=== PATIENT | male | born 1950 | race African-American/Black ===

== ENCOUNTER → 2016-12-13 | Outpatient (CLI) | payer MEDICARE ==
[2016-12-13 09:24] LABS: ABSOLUTE BASOPHILS # (AUTO) 0.1 10^3/uL (0.0-0.2); ABSOLUTE EOSINOPHILS # (AUTO) 0.1 10^3/uL (0.0-0.6); ABSOLUTE LYMPHOCYTES (AUTO) 2.3 10^3/uL (0.5-4.7); ABSOLUTE MONOCYTES (AUTO) 0.6 10^3/uL (0.1-1.4); ABSOLUTE NEUT (AUTO) 2.9 10^3/uL (1.7-8.2); BASOPHILS % (AUTO) 1.1 % (0-2); HEMATOCRIT 37.1 % (37.9-51.0); HGB HCT DIFFERENCE -1.1; LYMPHOCYTES % (AUTO) 38.4 % (13-45); MEAN CORPUSCULAR HEMOGLOBIN 28.5 pg (27.0-33.4); MEAN CORPUSCULAR HGB CONC 32.4 g/dL (32.0-36.0); MEAN CORPUSCULAR VOLUME 88 fl (80-97); MONOCYTES % (AUTO) 10.5 % (3-13); RED BLOOD COUNT 4.21 10^6/uL (4.35-5.55); RED CELL DISTRIBUTION WIDTH 15.8 % (11.5-14.0)
[2016-12-13 09:48] LABS: ALANINE AMINOTRANSFERASE 50 U/L (21-72); ALKALINE PHOSPHATASE 53 U/L (38-126); ANION GAP 11 (5-19); ASPARTATE AMINO TRANSFERASE 33 U/L (17-59); BILIRUBIN,DIRECT 0.4 mg/dL (0.0-0.4); BILIRUBIN,TOTAL 0.5 mg/dL (0.2-1.3); BLOOD UREA NITROGEN 19 mg/dL (7-20); CALCIUM 9.8 mg/dL (8.4-10.2); CARBON DIOXIDE 25 mmol/L (22-30); CHLORIDE 109 mmol/L (98-107); CREATININE RESULT 1.69 mg/dL (0.52-1.25); GLUCOSE 105 mg/dL (75-110); POTASSIUM 4.5 mmol/L (3.6-5.0); SODIUM 144.5 mmol/L (137-145); TOTAL PROTEIN 7.5 g/dL (6.3-8.2)
[2016-12-14 11:39] LABS: CREATININE URINE 100.3 mg/dL (Not Estab.); MICROALBUMIN URINE 11.3 ug/mL (Not Estab.)
== END ==
LOC: LAB 09:03
PROVIDERS: ATTEND Family Medicine Geriatric Medicine
DX: I10 Essential (primary) hypertension (principal); E78.5 Hyperlipidemia, unspecified; E11.9 Type 2 diabetes mellitus without complications; Z79.899 Other long term (current) drug therapy
CPT/HCPCS: 36415; 80053; 82043; 82570; 84443; 85025

== ENCOUNTER → 2016-12-20 | Outpatient (CLI) | payer MEDICARE ==
--- NOTE | 2016-12-20 11:07 | RADIOLOGY REPORT (SQ) ---
EXAM DESCRIPTION: CHEST PA/LAT COMPLETED DATE/TIME: 12/20/2016 10:58 am REASON FOR STUDY: ACUTE BRONCHITIS, WHEEZING COMPARISON: 05/16/2016, 09/04/2012 EXAM PARAMETERS: NUMBER OF VIEWS: two views TECHNIQUE: Digital Frontal and Lateral radiographic views of the chest acquired. RADIATION DOSE: NA LIMITATIONS: none FINDINGS: LUNGS AND PLEURA: No opacities, masses or pneumothorax. No pleural effusion. MEDIASTINUM AND HILAR STRUCTURES: No masses or contour abnormalities. HEART AND VASCULAR STRUCTURES: Heart normal size. No evidence for failure. BONES: Diffuse thoracic spondylotic change HARDWARE: None in the chest. OTHER: No other significant finding. IMPRESSION: NO SIGNIFICANT RADIOGRAPHIC FINDING IN THE CHEST. TECHNICAL DOCUMENTATION: JOB ID: [id number] [employer]- All Rights Reserved
== END ==
LOC: RAD 10:38
PROVIDERS: ATTEND Family Medicine Geriatric Medicine
DX: J20.9 Acute bronchitis, unspecified (principal); R06.2 Wheezing
CPT/HCPCS: 71020

== ENCOUNTER → 2017-02-19 | Outpatient (CLI) | payer MEDICARE ==
[2017-02-19 12:21] LABS: CHOLESTEROL 166.99 mg/dL (0-200); Direct HDL 40 mg/dL (>40); TRIGLYCERIDES 67 mg/dL (<150)
[2017-02-19 12:32] LABS: DIRECT LDL 105 mg/dL (<100)
== END ==
LOC: LAB 11:36
PROVIDERS: ATTEND Family Medicine Geriatric Medicine
DX: D64.9 Anemia, unspecified (principal); J20.9 Acute bronchitis, unspecified; E78.5 Hyperlipidemia, unspecified; E11.9 Type 2 diabetes mellitus without complications; R94.6 Abnormal results of thyroid function studies; Z79.899 Other long term (current) drug therapy
CPT/HCPCS: 36415; 80061; 82272; 82306; 82652; 82728; 83540; 83550; 84443; 84466

== ENCOUNTER → 2017-07-13 | Outpatient (CLI) | payer MEDICARE ==
[2017-07-13 10:55] LABS: HEMATOCRIT 35.1 % (37.9-51.0); HEMOGLOBIN 11.7 g/dL (13.5-17.0); MEAN CORPUSCULAR HEMOGLOBIN 29.3 pg (27.0-33.4); MEAN CORPUSCULAR HGB CONC 33.4 g/dL (32.0-36.0); MEAN CORPUSCULAR VOLUME 88 fl (80-97); PLATELET COUNT 389 10^3/uL (150-450); RED BLOOD COUNT 3.99 10^6/uL (4.35-5.55); RED CELL DISTRIBUTION WIDTH 16.1 % (11.5-14.0); WHITE BLOOD COUNT 5.7 10^3/uL (4.0-10.5)
[2017-07-13 10:56] LABS: APPEARANCE,URINE CLEAR; BILIRUBIN,URINE NEGATIVE (NEGATIVE); COLOR,URINE YELLOW; GLUCOSE, URINE NEGATIVE (NEGATIVE); KETONES,URINE NEGATIVE (NEGATIVE); LEUKOCYTE ESTERASE,URINE NEGATIVE (NEGATIVE); NITRITE,URINE NEGATIVE (NEGATIVE); PROTEIN,URINE NEGATIVE (NEGATIVE); URINE SPECIFIC GRAVITY 1.009; UROBILINOGEN,URINE NEGATIVE mg/dL (<2.0)
[2017-07-13 11:04] LABS: ANION GAP 12 (5-19); BLOOD UREA NITROGEN 31 mg/dL (7-20); CALCIUM 10.5 mg/dL (8.4-10.2); CARBON DIOXIDE 26 mmol/L (22-30); CHLORIDE 105 mmol/L (98-107); GLUCOSE 106 mg/dL (75-110); POTASSIUM 4.5 mmol/L (3.6-5.0); SODIUM 143.2 mmol/L (137-145)
[2017-07-14 11:39] LABS: CREATININE URINE 63.8 mg/dL (Not Estab.)
[2017-07-15 10:47] LABS: MICROALBUMIN URINE <3.0 ug/mL (Not Estab.)
== END ==
LOC: OD 09:49
PROVIDERS: ATTEND Internal Medicine Nephrology
DX: I12.9 Hypertensive chronic kidney disease with stage 1 through stage 4 chronic kidney disease, or unspecified chronic kidney disease (principal); N18.3 Chronic kidney disease, stage 3 (moderate); E11.9 Type 2 diabetes mellitus without complications
CPT/HCPCS: 36415; 80048; 81001; 82043; 82570; 85027

== ENCOUNTER → 2017-08-13 | Outpatient (CLI) | payer MEDICARE ==
[2017-08-13 10:49] LABS: ALANINE AMINOTRANSFERASE 49 U/L (21-72); ASPARTATE AMINO TRANSFERASE 38 U/L (17-59); CHOLESTEROL 134.57 mg/dL (0-200); TRIGLYCERIDES 67 mg/dL (<150)
[2017-08-13 11:00] LABS: DIRECT LDL 79 mg/dL (<100)
[2017-08-14 10:38] LABS: CREATININE URINE 120.3 mg/dL (Not Estab.); MICROALBUMIN URINE 14.9 ug/mL (Not Estab.)
== END ==
LOC: LAB 09:58
PROVIDERS: ATTEND Family Medicine Geriatric Medicine
DX: E78.5 Hyperlipidemia, unspecified (principal); I12.9 Hypertensive chronic kidney disease with stage 1 through stage 4 chronic kidney disease, or unspecified chronic kidney disease; N18.3 Chronic kidney disease, stage 3 (moderate); E11.9 Type 2 diabetes mellitus without complications
CPT/HCPCS: 36415; 80061; 82043; 82570; 83036; 84450; 84460

== ENCOUNTER → 2017-11-06 | Outpatient (CLI) | payer MEDICARE ==
[2017-11-06 11:32] LABS: HEMATOCRIT 36.4 % (37.9-51.0); HEMOGLOBIN 12.2 g/dL (13.5-17.0); MEAN CORPUSCULAR HEMOGLOBIN 28.8 pg (27.0-33.4); MEAN CORPUSCULAR HGB CONC 33.4 g/dL (32.0-36.0); MEAN CORPUSCULAR VOLUME 86 fl (80-97); PLATELET COUNT 337 10^3/uL (150-450); RED BLOOD COUNT 4.23 10^6/uL (4.35-5.55); WHITE BLOOD COUNT 5.9 10^3/uL (4.0-10.5)
[2017-11-06 12:02] LABS: ANION GAP 14 (5-19); BLOOD UREA NITROGEN 24 mg/dL (7-20); CALCIUM 10.1 mg/dL (8.4-10.2); CARBON DIOXIDE 25 mmol/L (22-30); CHLORIDE 108 mmol/L (98-107); GLUCOSE 133 mg/dL (75-110); POTASSIUM 4.8 mmol/L (3.6-5.0); SODIUM 147.1 mmol/L (137-145)
== END ==
LOC: OD 10:44
PROVIDERS: ATTEND Internal Medicine Nephrology
DX: E11.22 Type 2 diabetes mellitus with diabetic chronic kidney disease (principal); I12.9 Hypertensive chronic kidney disease with stage 1 through stage 4 chronic kidney disease, or unspecified chronic kidney disease; N18.3 Chronic kidney disease, stage 3 (moderate); M10.00 Idiopathic gout, unspecified site
CPT/HCPCS: 36415; 80048; 85027

== ENCOUNTER → 2017-11-15 | Outpatient (CLI) | payer MEDICARE ==
[2017-11-15 10:29] LABS: ANION GAP 12 (5-19); BLOOD UREA NITROGEN 23 mg/dL (7-20); CALCIUM 9.8 mg/dL (8.4-10.2); CARBON DIOXIDE 24 mmol/L (22-30); CHLORIDE 112 mmol/L (98-107); GLUCOSE 101 mg/dL (75-110); POTASSIUM 4.4 mmol/L (3.6-5.0); SODIUM 148.4 mmol/L (137-145); URIC ACID 6.3 mg/dL (3.5-8.5)
== END ==
LOC: OD 09:04
PROVIDERS: ATTEND Family Medicine Geriatric Medicine
DX: I10 Essential (primary) hypertension (principal); M10.9 Gout, unspecified; Z79.899 Other long term (current) drug therapy
CPT/HCPCS: 36415; 80048; 84550

== ENCOUNTER 2017-11-17 07:15 | Inpatient (IN) | payer MEDICARE ==
[2017-11-17] MEDS ORDERED: ASPIRIN 81 MG TABLET, CHEWABLE PO ONE (07:37)
--- NOTE | 2017-11-17 07:37 | ER Document Report ---
ED General - General Chief Complaint: Chest Pressure Stated Complaint: SHORTNESS OF BREATH Time Seen by Provider: 11/17/17 07:37 Mode of Arrival: Ambulatory Information source: Patient Notes: 67-year-old male hx MA, 2 previous pneumothorax on the right side presents with complaints of shortness of breath chest pain of approximately 6 hour duration. Patient notes he cannot get a deep breath and. Denies any fevers or chills denies any complaints prior to this occurring all of a sudden TRAVEL OUTSIDE OF THE [place] IN LAST 30 DAYS: No - HPI Onset: Just prior to arrival Onset/Duration: Sudden Quality of pain: Sharp Severity: Moderate Pain Level: 3 Associated symptoms: Chest pain, Shortness of breath Exacerbated by: Deep breathing Relieved by: Denies Similar symptoms previously: Yes Recently seen / treated by doctor: No Past Medical History - Social History Smoking Status: Current Every Day Smoker Cigarette use (# per day): Yes Chew tobacco use (# tins/day): No Smoking Education Provided: No Family History: Reviewed & Not Pertinent - Past Medical History Cardiac Medical History: Reports: Hx Heart Attack - 2005, Hx Hypercholesterolemia, Hx Hypertension Pulmonary Medical History: Denies: Hx Asthma Neurological Medical History: Denies: Hx Cerebrovascular Accident, Hx Seizures Endocrine Medical History: Reports: Hx Diabetes Mellitus Type 2 GI Medical History: Denies: Hx Hepatitis, Hx Hiatal Hernia, Hx Ulcer Musculoskeltal Medical History: Reports Hx Gout Infectious Medical History: Denies: Hx Hepatitis Past Surgical History: Reports: Hx Orthopedic Surgery - back. Denies: Hx Open Heart Surgery, Hx Pacemaker - Immunizations Hx Diphtheria, Pertussis, Tetanus Vaccination: No Review of Systems - Review of Systems Notes: REVIEW OF SYSTEMS: CONSTITUTIONAL : Denies fever, chills, or sweats. Denies recent illness. EENT: Denies eye, ear, throat, or mouth pain or symptoms. Denies nasal or sinus congestion or discharge. Denies throat, tongue, or mouth swelling or difficulty swallowing. CARDIOVASCULAR: Admits to chest pain RESPIRATORY: Admits to shortness of breath to breathing GASTROINTESTINAL: Denies abdominal pain or distention. Denies nausea, vomiting , or diarrhea. Denies blood in vomitus, stools, or per rectum. Denies black, tarry stools. Denies constipation. GENITOURINARY: Denies difficulty urinating, painful urination, burning, frequency, blood in urine, or discharge. MUSCULOSKELETAL: Denies back or neck pain or stiffness. Denies joint pain or swelling. SKIN: Denies rash, lesions or sores. HEMATOLOGIC : Denies easy bruising or bleeding. LYMPHATIC: Denies swollen, enlarged glands. NEUROLOGICAL: Denies confusion or altered mental status. Denies passing out or loss of consciousness. Denies dizziness or lightheadedness. Denies headache. Denies weakness or paralysis or loss of use of either side. Denies problems with gait or speech. Denies sensory loss, numbness, or tingling. Denies seizures. PSYCHIATRIC: Denies anxiety or stress. Denies depression, suicidal ideation, or homicidal ideation. ALL OTHER SYSTEMS REVIEWED AND NEGATIVE. Dictation was performed using [employer] voice recognition software PHYSICAL EXAMINATION: GENERAL: Well-appearing, well-nourished and in no acute distress. HEAD: Atraumatic, normocephalic. EYES: Pupils equal round and reactive to light, extraocular movements intact, sclera anicteric, conjunctiva are normal. ENT: Nares patent, oropharynx clear without exudates. Moist mucous membranes. NECK: Normal range of motion, supple without lymphadenopathy LUNGS: No breath sounds noted on the left HEART: Regular rate and rhythm without murmurs ABDOMEN: Soft, nontender, nondistended abdomen. No guarding, no rebound. No masses appreciated. Musculoskeletal: Normal range of motion, no pitting or edema. No cyanosis. NEUROLOGICAL: Cranial nerves grossly intact. Normal speech, normal gait. Normal sensory, motor exams PSYCH: Normal mood, normal affect. SKIN: Warm, Dry, normal turgor, no rashes or lesions noted. Physical Exam - Vital signs Vitals: Temp Pulse Resp BP Pulse Ox 98.0 F 63 18 175/79 H 95 11/17/17 07:31 11/17/17 07:31 11/17/17 07:31 11/17/17 07:31 11/17/17 07:31 Course - Re-evaluation Re-evalutation: 11/17/17 08:03 Patient has no signs of a tension pneumothorax but on examination there is obvious concerns for a spontaneous pneumothorax, blood pressure stable he satting anywhere between 94-95%, therefore I did order a chest x-ray portable which is consistent with a pneumothorax I spoke with on-call surgeon who will place chest tube 11/17/17 08:38 Chest tube was placed with no difficulty - Vital Signs Vital signs: Temp Pulse Resp BP Pulse Ox 98.0 F 63 18 175/79 H 97 11/17/17 07:31 11/17/17 07:31 11/17/17 07:31 11/17/17 07:31 11/17/17 07:40 - Laboratory Result Diagrams: 11/17/17 07:45 11/17/17 07:45 Laboratory results interpreted by me: 11/17/17 11/17/17 07:45 07:45 RBC 4.33 L Hgb 12.8 L Hct 37.8 L RDW 16.2 H Sodium 149.1 H Chloride 110 H BUN 23 H Creatinine 1.64 H Est GFR ( Amer) 51 L Est GFR (Non-Af Amer) 42 L Glucose 117 H Creatine Kinase 226 H - Diagnostic Test Radiology reviewed: Image reviewed - Chest x-ray one view AP notes acute left- sided pneumothorax, Reports reviewed Critical Care Note - Critical Care Note Total time excluding time spent on procedures (mins): 40 Comments: 40 minutes of critical care time spent in direct contact evaluating and reevaluating the patient, treating symptoms, reviewing labs and studies and speaking with family and consultants excluding any procedures Discharge - Discharge Clinical Impression: Pneumothorax Qualifiers: Pneumothorax type: spontaneous, primary Qualified Code(s): J93.11 - Primary spontaneous pneumothorax Condition: Stable Disposition: ADMITTED INPATIENT Admitting Provider: Surgicalist Unit Admitted: Surgical Floor Referrals: MANDEEP OJEDA MD [Primary Care Provider] - Follow up as needed
[2017-11-17 07:56] LABS: ABSOLUTE BASOPHILS # (AUTO) 0.1 10^3/uL (0.0-0.2); ABSOLUTE EOSINOPHILS # (AUTO) 0.1 10^3/uL (0.0-0.6); ABSOLUTE LYMPHOCYTES (AUTO) 2.2 10^3/uL (0.5-4.7); ABSOLUTE MONOCYTES (AUTO) 0.6 10^3/uL (0.1-1.4); ABSOLUTE NEUT (AUTO) 3.4 10^3/uL (1.7-8.2); BASOPHILS % (AUTO) 1.2 % (0-2); EOSINOPHILS % (AUTO) 1.4 % (0-6); HEMATOCRIT 37.8 % (37.9-51.0); HEMOGLOBIN 12.8 g/dL (13.5-17.0); LYMPHOCYTES % (AUTO) 33.9 % (13-45); MEAN CORPUSCULAR HEMOGLOBIN 29.6 pg (27.0-33.4); MEAN CORPUSCULAR HGB CONC 33.9 g/dL (32.0-36.0); MEAN CORPUSCULAR VOLUME 87 fl (80-97); PLATELET COUNT 364 10^3/uL (150-450); RED BLOOD COUNT 4.33 10^6/uL (4.35-5.55); RED CELL DISTRIBUTION WIDTH 16.2 % (11.5-14.0); SEGMENTED NEUTROPHILS % (AUTO) 53.5 % (42-78); TOTAL CELLS COUNTED % (AUTO) 100 %; WHITE BLOOD COUNT 6.4 10^3/uL (4.0-10.5)
[2017-11-17 08:04] LABS: PROTHROMBIN TIME 13.7 SEC (11.4-15.4)
[2017-11-17 08:17] LABS: ALANINE AMINOTRANSFERASE 35 U/L (21-72); ALBUMIN 4.1 g/dL (3.5-5.0); ALKALINE PHOSPHATASE 55 U/L (38-126); ANION GAP 15 (5-19); ASPARTATE AMINO TRANSFERASE 32 U/L (17-59); BILIRUBIN,DIRECT 0.3 mg/dL (0.0-0.4); BILIRUBIN,TOTAL 0.3 mg/dL (0.2-1.3); BLOOD UREA NITROGEN 23 mg/dL (7-20); CALCIUM 9.9 mg/dL (8.4-10.2); CARBON DIOXIDE 24 mmol/L (22-30); CHLORIDE 110 mmol/L (98-107); CREATINE KINASE 226 U/L (55-170); GLUCOSE 117 mg/dL (75-110); POTASSIUM 4.5 mmol/L (3.6-5.0); SODIUM 149.1 mmol/L (137-145); TOTAL PROTEIN 7.4 g/dL (6.3-8.2)
[2017-11-17] MEDS ORDERED: LIDOCAINE 1% INJ-PF (10 MG/ML) 30 ML SDV ONE (08:19)
[2017-11-17] MEDS ORDERED: LIDOCAINE 1% INJ-PF (10 MG/ML) 30 ML SDV INFIL ONE (08:19)
--- NOTE | 2017-11-17 08:21 | RADIOLOGY REPORT (SQ) ---
EXAM DESCRIPTION: CHEST SINGLE VIEW COMPLETED DATE/TIME: 11/17/2017 8:01 am REASON FOR STUDY: chest pressure, NO ;T LUNG SOUNDS, DO PCXR PER DR Swanson COMPARISON: 12/20/2016. FINDINGS: Single view AP portable upright chest. Large left pneumothorax without tension suggested. Right lung clear. Normal cardiomediastinal silhouette. IMPRESSION: Left pneumothorax. TECHNICAL DOCUMENTATION: JOB ID: [id number] Reading location - IP/workstation name: [email or web address]
[2017-11-17] MEDS ORDERED: MIDAZOLAM 2 MG/2 ML INJ ONE (08:22)
[2017-11-17] MEDS ORDERED: FENTANYL CITRATE INJ/PF 100 MCG/2 ML AMPUL ONE (08:23)
[2017-11-17 08:28] LABS: CREATINE KINASE MB 1.52 ng/mL (<4.55)
[2017-11-17 08:32] LABS: TROPONIN I < 0.012 ng/mL
[2017-11-17] MEDS ORDERED: ONDANSETRON HCL INJ/PF 4 MG/2 ML SDV IV PRN (09:03)
[2017-11-17] MEDS ORDERED: MORPHINE SULFATE 10 MG/ML INJ IV PRN (09:09)
[2017-11-17] MEDS ORDERED: HYDROCODONE/ACETAMINOPHEN 10-325 MG TABLET PO PRN (09:09)
--- NOTE | 2017-11-17 09:09 | RADIOLOGY REPORT (SQ) ---
EXAM DESCRIPTION: CHEST SINGLE VIEW COMPLETED DATE/TIME: 11/17/2017 8:59 am REASON FOR STUDY: post chest tube placement COMPARISON: Radiograph from earlier this morning. FINDINGS: Portable AP semi upright single-view chest. Left chest tube in appropriate position with tip to the apex. Re- expanding left lung with persisten t small pneumothorax. No mediastinal shift. IMPRESSION: Re- expanding lung after left chest tube placement. TECHNICAL DOCUMENTATION: JOB ID: [id number] Reading location - IP/workstation name: [email or web address]
[2017-11-17] MEDS ORDERED: NORMAL SALINE 1000 ML 1,000 ML IV PRN (09:10)
--- NOTE | 2017-11-17 09:21 | Operative Report ---
Nonrecallable Operative Report DATE OF SURGERY: 11/17/17 PREOPERATIVE DIAGNOSIS: Spontaneous pneumothorax on the left POSTOPERATIVE DIAGNOSIS: Spontaneous pneumothorax of the left OPERATION: Left-sided tube thoracostomy. SURGEON: EMMY ARECHIGA ANESTHESIA: Moderate Sedation TISSUE REMOVED OR ALTERED: None COMPLICATIONS: None apparent ESTIMATED BLOOD LOSS: Minimal PROCEDURE: Drains/implants: 28 Uzbek tube thoracostomy of the left chest. Procedure in detail: After informed consent was obtained the patient was laid in the supine position in the emergency department. The area of the left chest was prepped and draped in a normal, sterile fashion. Sedation was achieved using 4 mg of Versed and 100 mcg of fentanyl. 1% lidocaine was injected into the subcutaneous tissue in the left chest. This was done at the mid axillary line, at the level of the nipple. An incision was created with a 15 blade scalpel. Tunneling was performed through the subcutaneous tissue using blunt dissection. The chest wall was entered using a Kira clamp, bluntly. A large castaneda of air was identified. A finger sweep was performed noting no loculations. A 28 Uzbek chest tube was inserted into the chest and directed superiorly. The chest tube was sutured to the chest wall using 0 silk suture 2. A dressing was then fashioned, and the procedure was concluded. All sponge , instrument, and needle counts were correct 2. Condition: Stable.
--- NOTE | 2017-11-17 09:34 | PDOC H&P ---
History of Present Illness Admission Date/PCP: 11/17/17 08:31 MANDEEP OJEDA MD Patient complains of: Left-sided chest pain and shortness of breath History of Present Illness: SALONI MANJARREZ is a 67 year old male with a one-day history of left-sided chest pain and shortness of breath. The patient is a prior smoker and has had one previous episode of spontaneous right-sided pneumothorax. Patient began having sharp, stabbing chest pain on the left and presented to the emergency department for evaluation. He reports that his pain is increasing. The patient underwent workup, revealing a spontaneous left-sided pneumothorax. Patient denies any dizziness, orthostasis, nausea, vomiting, blurry vision, or palpitations. Nothing makes his pain better. Deep inspiration makes it worse. Past Medical History Cardiac Medical History: Reports: Myocardial Infarction - 2005, Hyperlipidema, Hypertension Pulmonary Medical History: Reports: Other - Previous right sided spontaneous pneumothorax approximately 5 years ago Denies: Asthma Neurological Medical History: Denies: Seizures Endocrine Medical History: Reports: Diabetes Mellitus Type 2 GI Medical History: Denies: Hepatitis, Hiatal Hernia Musculoskeltal Medical History: Reports: Gout Hematology: Denies: Anemia, Sickle Cell Disease Past Surgical History Past Surgical History: Reports: Orthopedic Surgery - back Denies: Pacemaker Social History Smoking Status: Former Smoker Frequency of Alcohol Use: Rare Family History Family History: Reviewed & Not Pertinent Parental Family History Reviewed: Yes Children Family History Reviewed: Yes Sibling(s) Family History Reviewed.: Yes Medication/Allergy Home Medications: Amlodipine Besylate 10 mg PO DAILY 07/24/12 Aspirin [Aspirin 81 mg Chewable Tablet] 81 mg PO DAILY 07/24/12 Carvedilol [Coreg 25 mg Tablet] 25 mg PO Q12 07/24/12 Clopidogrel Bisulfate [Clopidogrel] 75 mg PO DAILY 07/24/12 Multivitamin [Multiple Vitamins] 1 each PO DAILY 07/24/12 [place]-3/Dha/Epa/Fish Oil [Fish Oil 1,000 mg Softgel] 1 each PO DAILY 07/24/12 Pravastatin Sodium [Pravachol] 80 mg PO DAILY 07/24/12 Losartan/Hydrochlorothiazide [Hyzaar 100-25 Tablet] 1 each PO DAILY 11/10/13 Metformin HCl [Glucophage 500 mg Tablet] 850 mg PO DAILY 11/10/13 Besifloxacin HCl [Besivance 0.6% Oph Susp 5 ml] 1 drop OP ASDIR PRN 11/06/14 Difluprednate [Durezol] 1 drop OP ASDIR PRN 11/06/14 Ketorolac Tromethamine [Acular] 1 drop OP ASDIR PRN 11/06/14 Allergies/Adverse Reactions: No Known Allergies Allergy (Unverified 11/17/17 09:25) Review of Systems Constitutional: ABSENT: chills, fatigue, fever(s), headache(s) Eyes: ABSENT: visual disturbances Ears: ABSENT: hearing changes Nose, Mouth, and Throat: ABSENT: sore throat Cardiovascular: PRESENT: chest pain. ABSENT: edema, palpitations Respiratory: PRESENT: cough. ABSENT: dyspnea, hemoptysis Gastrointestinal: ABSENT: abdominal pain, bloating, constipation, diarrhea, dysphagia, heartburn Genitourinary: ABSENT: dysuria Musculoskeletal: ABSENT: back pain Integumentary: ABSENT: erythema, pruritus, rash Neurological: ABSENT: abnormal gait, abnormal speech, confusion, dizziness Psychiatric: ABSENT: anxiety, depression, hallucinations Endocrine: ABSENT: cold intolerance, heat intolerance Hematologic/Lymphatic: ABSENT: easy bleeding, easy bruising Physical Exam Vital Signs: Temp Pulse Resp BP Pulse Ox 98.0 F 68 14 127/66 H 99 11/17/17 07:31 11/17/17 08:12 11/17/17 09:11 11/17/17 09:11 11/17/17 09:11 General appearance: PRESENT: no acute distress Head exam: PRESENT: atraumatic, normocephalic Eye exam: PRESENT: EOMI, PERRLA. ABSENT: scleral icterus Mouth exam: PRESENT: neck supple Teeth exam: ABSENT: poor dentation Neck exam: ABSENT: lymphadenopathy, meningismus, tenderness, thyromegaly, tracheal deviation Respiratory exam: PRESENT: decreased breath sounds - Left. ABSENT: chest wall tenderness, rales, retraction, tachypnea Cardiovascular exam: ABSENT: tachycardia Pulses: PRESENT: normal radial pulses Vascular exam: PRESENT: normal capillary refill. ABSENT: pallor GI/Abdominal exam: PRESENT: soft. ABSENT: distended, guarding, hernia, tenderness Extremities exam: ABSENT: joint swelling, pedal edema, tenderness Musculoskeletal exam: PRESENT: normal inspection Neurological exam: PRESENT: alert, awake, oriented to person, oriented to place , oriented to time, oriented to situation, CN II-XII grossly intact. ABSENT: motor sensory deficit Psychiatric exam: ABSENT: agitated, anxious, depressed Skin exam: ABSENT: cyanosis, erythema, jaundice, pallor Results Impressions: Chest X-Ray 11/17/17 08:38 IMPRESSION: Re- expanding lung after left chest tube placement. Assessment & Plan - Diagnosis (1) Pneumothorax on left Is this a current diagnosis for this admission?: Yes - Inpatient Certification Based on my medical assessment, after consideration of the patient's comorbidities, presenting symptoms, or acuity I expect that the services needed warrant INPATIENT care.: Yes I certify that my determination is in accordance with my understanding of Medicare's requirements for reasonable and necessary INPATIENT services [42 CFR 412.3e].: Yes Medical Necessity: Need Close Monitoring Due to Risk of Patient Decompensation, Need for Pain Control, Other - Chest tube management - Plan Summary Plan Summary: This is a 67-year-old male with a spontaneous left-sided pneumothorax. I reviewed the patient's initial film. His initial x-ray showed almost complete collapse of the left lung. The patient underwent tube thoracostomy in the emergency department by me. On follow-up x-ray, the lung appears to be mostly reexpanded. Patient is breathing well, without signs of decompensation. I will place the patient on the floor. His chest tube needs to remain to 20 cm of water suction. Repeat x-rays tomorrow. Out of bed to chair. Regular diet. Plan chest tube suction for approximately 48 hours. Further treatment to be determined aced on the patient's clinical course.
[2017-11-17] MEDS: ENOXAPARIN SODIUM INJ 40 MG/0.4 ML DISP.SYRIN SUBCUT SCH (09:46)
--- NOTE | 2017-11-17 16:20 | EKG REPORT ---
SEVERITY:- NORMAL ECG - SINUS RHYTHM : Confirmed by: Caren Vasquez MD 17-Nov-2017 16:20:26
--- NOTE | 2017-11-18 07:23 | PDOC PROGRESS REPORT ---
Subjective Progress Note for:: 11/18/17 Subjective:: This is a 67-year-old male with a spontaneous left-sided pneumothorax. The patient still exhibits a fairly continuous air leak. He denies any shortness of breath, significant chest pain, orthostasis, dizziness, headache, fatigue, malaise, blurry vision. The patient does report some discomfort at the chest tube insertion site. Reason For Visit: SPONTANEOUS PNEUMOTHORAX Physical Exam Vital Signs: Temp Pulse Resp BP Pulse Ox 98.9 F 71 18 139/61 H 100 11/17/17 22:58 11/17/17 22:58 11/17/17 22:58 11/17/17 22:58 11/17/17 22:58 Intake & Output 11/17/17 11/18/17 11/19/17 06:59 06:59 06:59 Intake Total 643 Output Total 800 Balance -157 Weight 86.8 kg General appearance: PRESENT: no acute distress Head exam: PRESENT: atraumatic, normocephalic Eye exam: PRESENT: EOMI, PERRLA. ABSENT: scleral icterus Mouth exam: PRESENT: moist, neck supple Neck exam: ABSENT: meningismus, tenderness, thyromegaly, tracheal deviation Respiratory exam: PRESENT: chest wall tenderness - Minimal, at chest tube insertion site., clear to auscultation emil, unlabored, other - No significant subcutaneous emphysema Cardiovascular exam: PRESENT: RRR Pulses: PRESENT: normal radial pulses Vascular exam: PRESENT: normal capillary refill. ABSENT: pallor GI/Abdominal exam: PRESENT: soft. ABSENT: distended, guarding, hernia, tenderness Extremities exam: ABSENT: clubbing, joint swelling Musculoskeletal exam: PRESENT: normal inspection Neurological exam: PRESENT: alert, awake, oriented to person, oriented to place , oriented to time, oriented to situation, CN II-XII grossly intact. ABSENT: motor sensory deficit Psychiatric exam: ABSENT: agitated, anxious, depressed Skin exam: PRESENT: abrasion - Skin tears beneath the chest tube dressing, caused by tape. ABSENT: erythema, jaundice, pallor Results Laboratory Results: 11/17/17 13:20 Troponin I < 0.012 Impressions: Chest X-Ray 11/17/17 08:38 IMPRESSION: Re- expanding lung after left chest tube placement. Assessment & Plan - Diagnosis (1) Pneumothorax on left Is this a current diagnosis for this admission?: Yes - Plan Summary Plan Summary: This is a 67-year-old male with a spontaneous left-sided pneumothorax. The patient still exhibits an almost continuous air leak. I will maintain the chest tube to suction. Repeat chest x-ray today. I removed the patient's chest tube dressing and inspected his chest wall. There is no significant subcutaneous emphysema. He does have skin tears due to the harsh adhesive tape. I replaced his dressing with a less traumatic tape. Incentive spirometry. Out of bed to chair. Hopefully, his air leak will resolve in the next 24-48 hours. If it does not, the patient may require transfer for VATS.
--- NOTE | 2017-11-18 08:47 | RADIOLOGY REPORT (SQ) ---
EXAM DESCRIPTION: CHEST SINGLE VIEW COMPLETED DATE/TIME: 11/18/2017 8:26 am REASON FOR STUDY: pneumothorax COMPARISON: 11/17/2017. FINDINGS: Single-view chest, AP portable upright at approximately 0810 hours. Low lung volumes. Left chest tube remains in place, but looks slightly proximally retracted. Side hole lies just at th e chest wall on this morning's film. No significant pneumothorax. Increasing subcutaneous emphysema in the left chest wall and lower neck. IMPRESSION: No pneumothorax. Chest tube in place, but possibly slightly retracted. Increasing soft tissue gas may represent leak, correlate with chest tube function. TECHNICAL DOCUMENTATION: JOB ID: [id number] Reading location - IP/workstation name: [email or web address]
[2017-11-18] MEDS: SILVER SULFADIAZINE 1% CREAM 50 GM TP SCH ×2 (11:02→21:33)
[2017-11-18] MEDS: ENOXAPARIN SODIUM INJ 40 MG/0.4 ML DISP.SYRIN SUBCUT SCH (11:02)
[2017-11-18] MEDS ORDERED: (PENDING PHARMACY ID) (Terazosin Hcl [Hytrin] 2 MG) PO SCH (13:00)
[2017-11-18] MEDS ORDERED: LOSARTAN POTASSIUM 50 MG TABLET PO ONE (14:00)
[2017-11-18] MEDS ORDERED: AMLODIPINE BESYLATE 10 MG TABLET PO SCH (14:00)
[2017-11-18] MEDS ORDERED: DOXAZOSIN MESYLATE 2 MG TABLET PO ONE (14:00)
[2017-11-18] MEDS ORDERED: METFORMIN HCL 500 MG TABLET PO ONE (14:00)
[2017-11-18] MEDS: CARVEDILOL 12.5 MG TABLET PO SCH (21:33)
[2017-11-18] MEDS: ATORVASTATIN CALCIUM 80 MG TABLET PO SCH (21:33)
--- NOTE | 2017-11-19 08:59 | RADIOLOGY REPORT (SQ) ---
EXAM DESCRIPTION: CHEST SINGLE VIEW COMPLETED DATE/TIME: 11/19/2017 8:02 am REASON FOR STUDY: pneumothorax COMPARISON: Chest films 05/16/2016, 12/20/2016, 11/17/2017, 11/18/2017 EXAM PARAMETERS: NUMBER OF VIEWS: One view. TECHNIQUE: Single frontal radiographic view of the chest acquired. RADIATION DOSE: NA LIMITATIONS: None. FINDINGS: LUNGS AND PLEURA: Large caliber left chest tube in place, with the side port of the chest tube superimposed on the left ribs. Report called to Dr. Lynn. Trace residual left apical pneumothorax marked with arrows. No acute infiltrates. No pleural effusions. MEDIASTINUM AND HILAR STRUCTURES: No masses. Contour normal. HEART AND VASCULAR STRUCTURES: Heart normal in size. Normal vasculature. BONES: No acute findings. HARDWARE: Left chest tube with side port over the right lateral ribs, marked with a telida OTHER: Stable left chest wall and left supraclavicular soft tissue air IMPRESSION: Left chest tube side port is superimposed on the left lateral ribs. Trace left apical pneumothorax. Stable left chest wall air. TECHNICAL DOCUMENTATION: JOB ID: [id number] [employer]- All Rights Reserved Reading location - IP/workstation name: [email or web address]
--- NOTE | 2017-11-19 09:14 | PDOC PROGRESS REPORT ---
Subjective Progress Note for:: 11/19/17 Subjective:: No complaints. Reason For Visit: SPONTANEOUS PNEUMOTHORAX Physical Exam Vital Signs: Temp Pulse Resp BP Pulse Ox 98.4 F 58 L 12 164/76 H 100 11/19/17 07:34 11/19/17 07:34 11/19/17 07:34 11/19/17 07:34 11/19/17 07:34 Intake & Output 11/18/17 11/19/17 11/20/17 06:59 06:59 06:59 Intake Total 643 1885 Output Total 800 1825 Balance -157 60 Weight 86.8 kg 86.4 kg General appearance: PRESENT: mild distress Respiratory exam: PRESENT: other - Chest tube dressing anterior chest wall dressing removed. Second-degree eschar and bulla removed with by 4x4 Chest tube exit site intact, sutures secure Chest tube system interrogated; continuous air leak appears to be coming from the patient's chest.; Subcutaneous emphysema mild anterior chest wall, periclavicular area. Results Laboratory Results: 11/17/17 13:20 Troponin I < 0.012 Impressions: Chest X-Ray 11/19/17 06:00 IMPRESSION: Left chest tube side port is superimposed on the left lateral ribs. Trace left apical pneumothorax. Stable left chest wall air. Assessment & Plan - Diagnosis (1) Pneumothorax on left Is this a current diagnosis for this admission?: Yes Plan: Postoperative day 2, status post 28 Maori thoracostomy tube placement for complete pneumothorax, now with left lung essentially reexpanded, chest tube in acceptable position, with persisting, continuous air leak. Recommendations: 1. I reviewed chest x-ray with radiologist; I do not believe chest tube manipulation indicated. 2. I spoke with the cardiothoracic team at [facility]; we have gotten the patient on the transfer list for consideration for VATS procedure. I spoke with Dr. Ulysses Bullock who agrees to accept the patient in transfer.
[2017-11-19] MEDS: ENOXAPARIN SODIUM INJ 40 MG/0.4 ML DISP.SYRIN SUBCUT SCH (10:51)
[2017-11-19] MEDS: AMLODIPINE BESYLATE 10 MG TABLET PO SCH (10:52)
[2017-11-19] MEDS: LOSARTAN POTASSIUM 50 MG TABLET PO SCH (10:52)
[2017-11-19] MEDS: CARVEDILOL 12.5 MG TABLET PO SCH ×2 (10:52→20:43)
[2017-11-19] MEDS: ASPIRIN 81 MG TABLET, ENT COATED PO SCH (10:52)
[2017-11-19] MEDS: ALLOPURINOL 100 MG TABLET PO SCH (10:53)
[2017-11-19] MEDS: DOXAZOSIN MESYLATE 2 MG TABLET PO SCH (10:53)
[2017-11-19] MEDS: METFORMIN HCL 500 MG TABLET PO SCH (10:53)
[2017-11-19] MEDS: SILVER SULFADIAZINE 1% CREAM 50 GM TP SCH (10:53)
[2017-11-19] MEDS ORDERED: ONDANSETRON HCL INJ/PF 4 MG/2 ML SDV IV PRN (15:00)
[2017-11-19] MEDS: ATORVASTATIN CALCIUM 80 MG TABLET PO SCH (20:43)
[2017-11-20] MEDS: SILVER SULFADIAZINE 1% CREAM 50 GM TP SCH ×3 (07:00→22:04)
[2017-11-20] MEDS: ENOXAPARIN SODIUM INJ 40 MG/0.4 ML DISP.SYRIN SUBCUT SCH (09:25)
[2017-11-20] MEDS: METFORMIN HCL 500 MG TABLET PO SCH (09:26)
[2017-11-20] MEDS: CARVEDILOL 12.5 MG TABLET PO SCH ×2 (09:26→21:22)
[2017-11-20] MEDS: ALLOPURINOL 100 MG TABLET PO SCH (09:27)
[2017-11-20] MEDS: AMLODIPINE BESYLATE 10 MG TABLET PO SCH (09:27)
[2017-11-20] MEDS: LOSARTAN POTASSIUM 50 MG TABLET PO SCH (09:27)
[2017-11-20] MEDS: ASPIRIN 81 MG TABLET, ENT COATED PO SCH (09:27)
[2017-11-20] MEDS: DOXAZOSIN MESYLATE 2 MG TABLET PO SCH (09:27)
[2017-11-20] MEDS ORDERED: LIDOCAINE 1% INJ-PF (10 MG/ML) 30 ML SDV ONE (10:28)
--- NOTE | 2017-11-20 10:48 | RADIOLOGY REPORT (SQ) ---
EXAM DESCRIPTION: CHEST SINGLE VIEW COMPLETED DATE/TIME: 11/20/2017 8:47 am REASON FOR STUDY: pneumothorax COMPARISON: Chest films 11/17/2017, 11/18/2017, 11/19/2017 EXAM PARAMETERS: NUMBER OF VIEWS: One view. TECHNIQUE: Single frontal radiographic view of the chest acquired. RADIATION DOSE: NA LIMITATIONS: None. FINDINGS: LUNGS AND PLEURA: There is a trace left apical pneumothorax, which is slightly more promin ent than on 11/19/2017 at 0747 hours. Pneumothorax is marked with arrows. A left chest tube is in place, the side port of the chest tube is superimposed on the left lateral ri bs, unchanged from 11/19/2017 at 0747 hours. No pleural effusion. Minimal bandlike atelectasis right medial lung base. MEDIASTINUM AND HILAR STRUCTURES: No masses. Contour normal. HEART AND VASCULAR STRUCTURES: Heart normal in size. Normal vasculature. BONES: No acute findings. HARDWARE: Left chest tube are present, side port is superimposed on the left lateral ribs OTHER: Stable left supraclavicular and lateral chest wall air IMPRESSION: Trace left apical pneumothorax, slightly more prominent than on 11/19/2017 at 0747 hours COMMENT: Results called to Dr. Rodrigues TECHNICAL DOCUMENTATION: JOB ID: [id number] [employer]- All Rights Reserved Reading location - IP/workstation name: [email or web address]
--- NOTE | 2017-11-20 12:14 | PDOC PROGRESS REPORT ---
Subjective Progress Note for:: 11/20/17 Subjective:: Feels well. Some chest discomfort. No change. Reason For Visit: SPONTANEOUS PNEUMOTHORAX Physical Exam Vital Signs: Temp Pulse Resp BP Pulse Ox 97.8 F 56 L 16 144/67 H 98 11/20/17 08:00 11/20/17 08:00 11/20/17 08:00 11/20/17 08:00 11/20/17 08:00 Intake & Output 11/19/17 11/20/17 11/21/17 06:59 06:59 06:59 Intake Total 1885 854 Output Total 1825 1575 Balance 60 -721 Weight 86.4 kg 86.4 kg General appearance: PRESENT: no acute distress, cooperative Respiratory exam: PRESENT: clear to auscultation emil, other - Chest tube in place. Crepitus felt around the exit site. Air leak seen in the Pleur-evac. Cardiovascular exam: PRESENT: RRR Results Laboratory Results: 11/17/17 13:20 Troponin I < 0.012 Impressions: Chest X-Ray 11/20/17 06:00 IMPRESSION: Trace left apical pneumothorax, slightly more prominent than on 04/2018 at 0747 hours Assessment & Plan - Diagnosis (1) Pneumothorax on left Is this a current diagnosis for this admission?: Yes Plan: In reviewing the chest x-rays, the side-port may be out of the pleural cavity. Patient has substantial subcutaneous emphysema. Suspect that the air leak is secondary to the side-port being out of the pleural cavity. Will hold off his transfer. I will plan to place another chest tube and removed this one. If the patient continues to have an air leak with the new chest tube, will plan transfer to [facility]. I have had a long discussion with the patient concerning the risk and benefits of the procedure including risk of lung injury and bleeding and infection and the persistence of his air leak requiring transfer.
--- NOTE | 2017-11-20 13:43 | Operative Report ---
Operative Report DATE OF SURGERY: 11/17/17 PREOPERATIVE DIAGNOSIS: Spontaneous pneumothorax on the left. Dysfunctional chest tube POSTOPERATIVE DIAGNOSIS: Spontaneous pneumothorax of the left. Dysfunctional chest tube OPERATION: Left-sided tube thoracostomy. SURGEON: AMOS ALMONTE ANESTHESIA: Local TISSUE REMOVED OR ALTERED: None COMPLICATIONS: None ESTIMATED BLOOD LOSS: Minimal INTRAOPERATIVE FINDINGS: Initial larger leak and then very small air leak PROCEDURE: Informed consent was obtained. Procedure was then at the patient's bedside. Patient's left chest was prepped and draped in usual sterile fashion. About 2 intercostal spaces below the pre-existing chest tube and a slightly anterior to the anterior axillary line, local anesthetic was injected. Incision was made and a tunnel was created entering the pleural space with a Kira clamp. Sized 28 chest tube was placed without difficulty. Air was heard exiting the chest tube. It was sutured in place. Upon attachment to the Pleur-evac there was initially a large air leak and then a very small one. Suction was applied. Patient tolerated procedure well with no apparent complications. Patient's pre-existing chest tube was removed without difficulty and Vaseline gauze dressing was applied. Stat portable chest x-ray was ordered.
--- NOTE | 2017-11-20 14:32 | RADIOLOGY REPORT (SQ) ---
EXAM DESCRIPTION: CHEST SINGLE VIEW COMPLETED DATE/TIME: 11/20/2017 1:54 pm REASON FOR STUDY: new chest tube COMPARISON: None. EXAM PARAMETERS: NUMBER OF VIEWS: One view. TECHNIQUE: Single frontal radiographic view of the chest acquired. RADIATION DOSE: NA LIMITATIONS: None. FINDINGS: LUNGS AND PLEURA: Persistent trace left apical pneumothorax. No new infiltrates. Left ch est tube has been advanced since the previous chest x-ray with the side hole now projected over the l eft mid lung. MEDIASTINUM AND HILAR STRUCTURES: No masses. Contour normal. HEART AND VASCULAR STRUCTURES: Heart normal in size. Normal vasculature. BONES: No acute findings. HARDWARE: None in the chest. OTHER: Persistent subcutaneous emphysema left neck and lateral chest wall unchanged. IMPRESSION: Dx stable trace left apical pneumothorax. Chest tube on the left is been advanced since the previous chest x-ray. See above discussion. No new infiltrates. TECHNICAL DOCUMENTATION: JOB ID: [id number] [employer]- All Rights Reserved Reading location - IP/workstation name: [email or web address]
[2017-11-20] MEDS: ATORVASTATIN CALCIUM 80 MG TABLET PO SCH (21:23)
--- NOTE | 2017-11-21 08:30 | RADIOLOGY REPORT (SQ) ---
EXAM DESCRIPTION: CHEST SINGLE VIEW COMPLETED DATE/TIME: 11/21/2017 7:56 am REASON FOR STUDY: f/u ptx COMPARISON: 11/20/2017 EXAM PARAMETERS: NUMBER OF VIEWS: One view. TECHNIQUE: Single frontal radiographic view of the chest acquired. RADIATION DOSE: NA LIMITATIONS: None. FINDINGS: LUNGS AND PLEURA: The previously described apical and lateral pneumothorax on the left jameel ears slightly larger on the current study. Linear density is identified in the right lung base most consistent with atelectatic changes. Right lung is otherwise clear and well expanded. MEDIASTINUM AND HILAR STRUCTURES: No masses. Contour normal. HEART AND VASCULAR STRUCTURES: The configuration of the heart and mediastinal structures is unchanged . BONES: No acute findings. HARDWARE: Left chest tube is unchanged in position OTHER: Large amount of subcutaneous air is identified along the left lateral chest wall extending int o the left cervical region. IMPRESSION: Interval increase in size of the pneumothorax on the left as noted above. Other finding s as noted above TECHNICAL DOCUMENTATION: JOB ID: [id number] [employer]- All Rights Reserved Reading location - IP/workstation name: [email or web address]
[2017-11-21] MEDS: ENOXAPARIN SODIUM INJ 40 MG/0.4 ML DISP.SYRIN SUBCUT SCH (10:10)
[2017-11-21] MEDS: CARVEDILOL 12.5 MG TABLET PO SCH ×2 (10:12→21:19)
[2017-11-21] MEDS: METFORMIN HCL 500 MG TABLET PO SCH (10:12)
[2017-11-21] MEDS: AMLODIPINE BESYLATE 10 MG TABLET PO SCH (10:13)
[2017-11-21] MEDS: ASPIRIN 81 MG TABLET, ENT COATED PO SCH (10:13)
[2017-11-21] MEDS: LOSARTAN POTASSIUM 50 MG TABLET PO SCH (10:13)
[2017-11-21] MEDS: ALLOPURINOL 100 MG TABLET PO SCH (10:13)
[2017-11-21] MEDS: DOXAZOSIN MESYLATE 2 MG TABLET PO SCH (10:14)
--- NOTE | 2017-11-21 14:00 | RADIOLOGY REPORT (SQ) ---
EXAM DESCRIPTION: CT CHEST WITHOUT COMPLETED DATE/TIME: 11/21/2017 1:04 pm REASON FOR STUDY: spontaneous pneumothorax, eval for bleb disease COMPARISON: Chest films 11/21/2017, 11/20/2017, 11/19/2017, 11/17/2017 TECHNIQUE: CT scan performed of the chest without intravenous contrast. Images reviewed with lung, soft tissue and bone windows. Reconstructed coronal and sagittal MPR images reviewed. All images st ored on PACS. All CT scanners at this facility use dose modulation, iterative reconstruction, and/or weight based d osing when appropriate to reduce radiation dose to as low as reasonably achievable (ALARA). [facility]: Dose Right [facility]: CareDose [facility]: Dose Right [facility]: Teradose 4D [facility]: [employer] RADIATION DOSE: CT Rad equipment meets quality standard of care and radiation dose reduction techniq ues were employed. CTDIvol: 11.3 mGy. DLP: 428 mGy-cm. mGy. LIMITATIONS: No technical limitations. FINDINGS: LUNGS AND PLEURA: A left-sided chest tube is present along the major fissure, the tip of t he tube is at the apex left hemithorax and side-port is in the major fissure. 8 moderate-sized pneumothorax is present similar compared to chest film 11/21/2017 0729 hours. There are small bullae or blebs at the superior most edge left upper lobe. There is atelectasis in t he left upper lobe along the major fissure. Trace left pleural fluid. These findings were discussed with Dr. Jj. Right lung well inflated with minimal basilar bandlike atelectasis. Right upper lobe exhibits modera te change of obstructive lung disease. HILAR AND MEDIASTINAL STRUCTURES: No identified masses or abnormal nodes. No obvious aneurysm. HEART AND VASCULAR STRUCTURES: No aneurysm. No pericardial effusion. Mild coronary artery calcifica tion UPPER ABDOMEN: Bilateral renal cortical cysts are present, incompletely evaluated THYROID AND OTHER SOFT TISSUES: Thyroid unremarkable. Stable left supraclavicular, axillary, and ant erolateral chest wall air. BONES: No significant finding. HARDWARE: Left chest tube along the major fissure OTHER: No other significant findings. IMPRESSION: Moderate-sized left pneumothorax, similar compared to chest films 11/21/2017 729 hours Left chest tube is present along the major fissure with the tip at the apex hemithorax. Findings discussed with the patient's Surgical attending physician TECHNICAL DOCUMENTATION: JOB ID: [id number] Quality ID # [id number]: Final reports with documentation of one or more dose reduction techniques (e.g., Au tomated exposure control, adjustment of the mA and/or kV according to patient size, use of iterative reconstruction technique) 2010 [employer]- All Rights Reserved Reading location - IP/workstation name: [email or web address]
[2017-11-21] MEDS: SILVER SULFADIAZINE 1% CREAM 50 GM TP SCH ×2 (18:51→21:20)
--- NOTE | 2017-11-21 19:47 | PDOC DISCHARGE SUMMARY ---
General - Admit/Disc Date/PCP Admission Date/Primary Care Provider: 11/17/17 08:31 MANDEEP OJEDA MD Discharge Date: 11/21/17 - transfer to [facility] [place] - Discharge Diagnosis (1) Pneumothorax on left Is this a current diagnosis for this admission?: Yes - Additional Information Resuscitation Status: Full Code Discharge Diet: As Tolerated Discharge Activity: Activity As Tolerated Home Medications: Amlodipine Besylate 10 mg PO DAILY 07/24/12 Carvedilol [Coreg 25 mg Tablet] 25 mg PO Q12 07/24/12 Clopidogrel Bisulfate [Clopidogrel] 75 mg PO DAILY 07/24/12 Wadley-3/Dha/Epa/Fish Oil [Fish Oil 1,000 mg Softgel] 1 each PO DAILY 07/24/12 Allopurinol [Zyloprim 100 mg Tablet] 100 mg PO DAILY 11/17/17 Aspirin [Aspirin EC] 81 mg PO DAILY 11/17/17 Atorvastatin Calcium [Lipitor 80 mg Tablet] 80 mg PO QHS 11/17/17 Fenofibrate,Micronized [Fenofibrate] 134 mg PO DAILY 11/17/17 Losartan Potassium [Cozaar 100 mg Tablet] 100 mg PO DAILY 11/17/17 Metformin HCl [Glucophage] 1,000 mg PO DAILY 11/17/17 Multivit-Min/Folic/Vit K/Lycop [One-A-Day Men's 50+ Tablet] 1 each PO DAILY 02/26 Terazosin HCl [Hytrin] 2 mg PO DAILY 11/17/17 History of Present Illness History of Present Illness: SALONI MANJARREZ is a 67 year old male with a one-day history of left-sided chest pain and shortness of breath. The patient is a prior smoker and has had one previous episode of spontaneous right-sided pneumothorax. Patient began having sharp, stabbing chest pain on the left and presented to the emergency department for evaluation. The patient underwent workup, revealing a spontaneous left-sided pneumothorax. Hospital Course Hospital Course: A left sided tube thoracostomy was placed, and the pt was transferred to the floor. Over the coming days, it was noted that the pt had a persistent air leak. On 11/20/17, a new chest tube was placed, however the air leak continued. At this time, it was felt necessary to seek the assistance of a thoracic surgeon. The pt will be transferred to [facility] for their expertise in this area. Physical Exam Vital Signs: Temp Pulse Resp BP Pulse Ox 98.2 F 71 14 153/67 H 94 11/21/17 14:59 11/21/17 14:59 11/21/17 14:59 11/21/17 14:59 11/21/17 14:59 Intake & Output 11/20/17 11/21/17 11/22/17 06:59 06:59 06:59 Intake Total 854 1400 835 Output Total 1575 1480 400 Balance -721 -80 435 Weight 86.4 kg 86.5 kg Results Laboratory Results: 11/17/17 13:20 Troponin I < 0.012 Impressions: Chest CT 11/21/17 00:00 IMPRESSION: Moderate-sized left pneumothorax, similar compared to chest films 729 hours Left chest tube is present along the major fissure with the tip at the apex hemithorax. Findings discussed with the patient's Surgical attending physician Chest X-Ray 11/21/17 07:00 IMPRESSION: Interval increase in size of the pneumothorax on the left as noted above. Other findings as noted above Qualifiers - * PATIENT BEING DISCHARGED WITH ANY OF THE FOLLOWING DIAGNOSIS: No Plan Time Spent: Less than 30 Minutes
[2017-11-21] MEDS: ATORVASTATIN CALCIUM 80 MG TABLET PO SCH (21:19)
[2017-11-21 21:42] VITALS: BP 156/72
== END 2017-11-21 21:40 | disposition short-term general hospital (02) | DRG 201 ==
LOC: ER 07:15 → EH 08:31 → 5 09:54
PROVIDERS: ADMIT Surgery; ATTEND Surgery
PROC: 0W9B00Z Drainage of Left Pleural Cavity with Drainage Device, Open Approach (ICD-10-PCS; principal; 2017-11-17)
PROC: 0W9B00Z Drainage of Left Pleural Cavity with Drainage Device, Open Approach (ICD-10-PCS; 2017-11-17)
DX: J93.11 Primary spontaneous pneumothorax (principal); E78.00 Pure hypercholesterolemia, unspecified; I10 Essential (primary) hypertension; E11.9 Type 2 diabetes mellitus without complications; M10.9 Gout, unspecified; I25.2 Old myocardial infarction; Z79.82 Long term (current) use of aspirin; Z79.84 Long term (current) use of oral hypoglycemic drugs; Z87.891 Personal history of nicotine dependence; Z79.899 Other long term (current) drug therapy
CPT/HCPCS: 36415; 71045; 71250; 80048; 80053; 82550; 82553; 84484; 84550; 85025; 85610; 93005; 93010; 99291; 99152; J1650; J2250; J3010; J3490; J7030

== ENCOUNTER 2018-03-19 10:56 | Emergency (ER) | payer MEDICARE ==
[2018-03-19 11:18] VITALS: BP 122/59
--- NOTE | 2018-03-19 11:53 | ER Document Report ---
ED Medical Screen (RME) - General Chief Complaint: Rib Pain Stated Complaint: FALL/RIB PAIN Time Seen by Provider: 03/19/18 11:40 TRAVEL OUTSIDE OF THE [place] IN LAST 30 DAYS: No - HPI Onset: Other - 59-year-old male with a history of spontaneous pneumothorax in the past who presents for evaluation of pain along the right chest wall after slipping off of a ladder and having a branch hit him in the arm. He has been able to ambulate normally but endorses some mid will shortness of breath since. Denies any loss of consciousness trauma elsewhere abdominal pain diarrhea constipation dysuria. Denies any back pain neck pain headache. Denies any fevers chills or other symptoms. - Related Data Allergies/Adverse Reactions: adhesive tape Adverse Reaction (Verified 11/18/17 07:50) Past Medical History - General Information source: Patient - Social History Chew tobacco use (# tins/day): No Drug Abuse: None - Past Medical History Cardiac Medical History: Reports: Hx Heart Attack - 2006, Hx Hypercholesterolemia, Hx Hypertension Pulmonary Medical History: Denies: Hx Asthma Neurological Medical History: Denies: Hx Cerebrovascular Accident, Hx Seizures Endocrine Medical History: Reports: Hx Diabetes Mellitus Type 2 Renal/ Medical History: Denies: Hx Peritoneal Dialysis GI Medical History: Denies: Hx Hepatitis, Hx Hiatal Hernia, Hx Ulcer Musculoskeltal Medical History: Reports Hx Gout Infectious Medical History: Denies: Hx Hepatitis Past Surgical History: Reports: Hx Orthopedic Surgery - back. Denies: Hx Open Heart Surgery, Hx Pacemaker - Immunizations Hx Diphtheria, Pertussis, Tetanus Vaccination: No History of Influenza Vaccine for 03/2017 - 08/2017 Season: Yes Influenza Administration Date for 03/2017 - 08/2017 Season: 03/11/17 Review of Systems - Review of Systems -: Yes All other systems reviewed and negative Physical Exam - Vital signs Vitals: Temp Pulse Resp BP Pulse Ox 97.9 F 56 L 14 122/59 L 99 03/19/18 11:17 03/19/18 11:17 03/19/18 11:17 03/19/18 11:17 03/19/18 11:17 - General General appearance: Appears well In distress: None - HEENT Head: Normocephalic Eyes: Normal Conjunctiva: Normal Cornea: Normal Extraocular movements intact: Yes Eyelashes: Normal Pupils: PERRL - Respiratory Respiratory status: No respiratory distress Chest status: Nontender Breath sounds: Normal Chest palpation: Normal - Cardiovascular Rhythm: Regular Heart sounds: Normal auscultation Murmur: No - Abdominal Inspection: Normal Distension: No distension Tenderness: Nontender - Back Back: Other - On the right flank from the sixth through the 10th ribs there is an overlying bruise without any obvious step-offs or deformities - Extremities General upper extremity: Normal inspection, Nontender, Normal ROM, Normal strength General lower extremity: Normal inspection, Nontender, Normal ROM, Normal strength - Neurological Neuro grossly intact: Yes Cognition: Normal Orientation: AAOx4 Claire Coma Scale Eye Opening: Spontaneous [place] Coma Scale Verbal: Oriented Claire Coma Scale Motor: Obeys Commands [place] Coma Scale Total: 15 Speech: Normal Cranial nerves: Normal Cerebellar coordination: Normal Motor strength normal: LUE, RUE, LLE, RLE - Psychological Associated symptoms: Normal affect Course - Re-evaluation Re-evalutation: 03/19/18 16:00 This is a very well-appearing 59-year-old male presents for evaluation 2 days after hitting a branch on the right side of his body. On examination he has normal work of breathing normal breath sounds in all appreciable lung ureña. He has had a spontaneous pneumothorax in the past and has had required tube thoracostomy. We will obtain 2 view of the chest, will reassess this patient following his two -view chest x-ray. There is no obvious bony step-offs the patient is in no extremis. We will Place Lidoderm patches on for analgesia. Chest x-ray does not demonstrate any obvious rib fractures, chest x-ray does not demonstrate any appreciable pneumothorax. Do not believe this represents any other more serious underlying cause of chest pain such as dissection, DC, PE or otherwise. Plan for patient to be discharged with encouraged follow-up with his primary physicians with a prescription for Lidoderm cream. - Vital Signs Vital signs: Temp Pulse Resp BP Pulse Ox 97.9 F 56 L 14 122/59 L 99 03/19/18 11:17 03/19/18 11:17 03/19/18 11:17 03/19/18 11:17 03/19/18 11:17 Doctor's Discharge - Discharge Clinical Impression: Rib pain on right side Fall Qualifiers: Encounter type: initial encounter Qualified Code(s): W19.XXXA - Unspecified fall, initial encounter Fall from ladder Qualifiers: Encounter type: initial encounter Qualified Code(s): W11.XXXA - Fall on and from ladder, initial encounter Condition: Good Disposition: HOME, SELF-CARE Instructions: Chest Wall Pain ([facility]) Additional Instructions: He was seen today in the emergency department for your rib pain. He had evaluation including a chest x-ray. Your chest x-ray did not show any broken ribs or a punctured lung. Use the numbing medication prescribed to you for your pain. Return for worsening pain. Use Tylenol for your pain at home. Make sure you are taking 5 or 6 deep breaths every hour. Otherwise call your doctor this week for an appointment. Prescriptions: Lidocaine HCl [Xylocaine 5% Ointment 35.44 gm] 35.44 applic TP DAILY 7 Days #1 tube Referrals: MANDEEP OJEDA MD [Primary Care Provider] - Follow up as needed
--- NOTE | 2018-03-19 12:06 | RADIOLOGY REPORT (SQ) ---
EXAM DESCRIPTION: CHEST 2 VIEWS COMPLETED DATE/TIME: 03/19/2018 11:48 am REASON FOR STUDY: Concern for pneumothorax or rib fractures rt side Fall from ladder with right-sided injury and pain. COMPARISON: 11/11/2017. EXAM PARAMETERS: NUMBER OF VIEWS: two views TECHNIQUE: Digital Frontal and Lateral radiographic views of the chest acquired. RADIATION DOSE: NA LIMITATIONS: none FINDINGS: LUNGS AND PLEURA: No opacities, masses or pneumothorax. No pleural effusion. MEDIASTINUM AND HILAR STRUCTURES: No masses or contour abnormalities. HEART AND VASCULAR STRUCTURES: Heart normal size. No evidence for failure. BONES: No acute findings. HARDWARE: None in the chest. OTHER: No other significant finding. IMPRESSION: NO ACUTE RADIOGRAPHIC FINDING IN THE CHEST. NO PNEUMOTHORAX. NO RIB FRACTURES EVIDENT, ALTHOUGH LIMITED VISUALIZATION. TECHNICAL DOCUMENTATION: JOB ID: [id number] [employer]- All Rights Reserved Reading location - IP/workstation name: [email or web address]
== END 2018-03-19 12:29 | disposition home or self-care (01) ==
LOC: ER 10:56
DX: S20.221A Contusion of right back wall of thorax, initial encounter (principal); R07.89 Other chest pain; W11.XXXA Fall on and from ladder, initial encounter; W22.8XXA Striking against or struck by other objects, initial encounter; Y93.89 Activity, other specified; Y92.009 Unspecified place in unspecified non-institutional (private) residence as the place of occurrence of the external cause; R06.02 Shortness of breath; I10 Essential (primary) hypertension; E11.9 Type 2 diabetes mellitus without complications
CPT/HCPCS: 71046; 99283

== ENCOUNTER → 2018-04-15 | Outpatient (CLI) | payer MEDICARE ==
[2018-04-15 10:13] LABS: ABSOLUTE BASOPHILS # (AUTO) 0.1 10^3/uL (0.0-0.2); ABSOLUTE EOSINOPHILS # (AUTO) 0.1 10^3/uL (0.0-0.6); ABSOLUTE LYMPHOCYTES (AUTO) 2.3 10^3/uL (0.5-4.7); ABSOLUTE MONOCYTES (AUTO) 0.5 10^3/uL (0.1-1.4); ABSOLUTE NEUT (AUTO) 2.2 10^3/uL (1.7-8.2); EOSINOPHILS % (AUTO) 1.5 % (0-6); HEMATOCRIT 36.4 % (37.9-51.0); HEMOGLOBIN 12.4 g/dL (13.5-17.0); LYMPHOCYTES % (AUTO) 44.2 % (13-45); MEAN CORPUSCULAR HEMOGLOBIN 29.3 pg (27.0-33.4); MEAN CORPUSCULAR HGB CONC 34.2 g/dL (32.0-36.0); MEAN CORPUSCULAR VOLUME 86 fl (80-97); MONOCYTES % (AUTO) 10.4 % (3-13); PLATELET COUNT 399 10^3/uL (150-450); RED BLOOD COUNT 4.24 10^6/uL (4.35-5.55); RED CELL DISTRIBUTION WIDTH 16.4 % (11.5-14.0); SEGMENTED NEUTROPHILS % (AUTO) 42.9 % (42-78); TOTAL CELLS COUNTED % (AUTO) 100 %; WHITE BLOOD COUNT 5.1 10^3/uL (4.0-10.5)
[2018-04-15 10:41] LABS: ALANINE AMINOTRANSFERASE 27 U/L (21-72); CHOLESTEROL 156.43 mg/dL (0-200); TRIGLYCERIDES 63 mg/dL (<150)
[2018-04-15 10:52] LABS: DIRECT LDL 111 mg/dL (<100)
[2018-04-16 14:40] LABS: MICROALBUMIN URINE 21.5 ug/mL (Not Estab.)
== END ==
LOC: OD 09:31
PROVIDERS: ATTEND Family Medicine Geriatric Medicine
DX: E11.9 Type 2 diabetes mellitus without complications (principal); I10 Essential (primary) hypertension; E78.5 Hyperlipidemia, unspecified
CPT/HCPCS: 36415; 80061; 82043; 82570; 83036; 84460; 85025

== ENCOUNTER → 2018-05-06 | Outpatient (CLI) | payer MEDICARE ==
[2018-05-06 10:42] LABS: HEMATOCRIT 34.7 % (37.9-51.0); HEMOGLOBIN 11.7 g/dL (13.5-17.0); MEAN CORPUSCULAR HGB CONC 33.6 g/dL (32.0-36.0); MEAN CORPUSCULAR VOLUME 86 fl (80-97); PLATELET COUNT 390 10^3/uL (150-450); RED BLOOD COUNT 4.02 10^6/uL (4.35-5.55); RED CELL DISTRIBUTION WIDTH 16.7 % (11.5-14.0)
[2018-05-06 10:54] LABS: APPEARANCE,URINE CLEAR; BILIRUBIN,URINE NEGATIVE (NEGATIVE); COLOR,URINE YELLOW; GLUCOSE, URINE NEGATIVE (NEGATIVE); KETONES,URINE NEGATIVE (NEGATIVE); LEUKOCYTE ESTERASE,URINE NEGATIVE (NEGATIVE); NITRITE,URINE NEGATIVE (NEGATIVE); PROTEIN,URINE NEGATIVE (NEGATIVE); URINE SPECIFIC GRAVITY 1.017; UROBILINOGEN,URINE NEGATIVE mg/dL (<2.0)
[2018-05-06 11:03] LABS: ANION GAP 11 (5-19); BLOOD UREA NITROGEN 23 mg/dL (7-20); CARBON DIOXIDE 27 mmol/L (22-30); CHLORIDE 109 mmol/L (98-107); GLUCOSE 107 mg/dL (75-110); POTASSIUM 4.5 mmol/L (3.6-5.0); SODIUM 147.1 mmol/L (137-145)
== END ==
LOC: OD 09:49
PROVIDERS: ATTEND Internal Medicine Nephrology
DX: I12.9 Hypertensive chronic kidney disease with stage 1 through stage 4 chronic kidney disease, or unspecified chronic kidney disease (principal); E11.22 Type 2 diabetes mellitus with diabetic chronic kidney disease; N18.3 Chronic kidney disease, stage 3 (moderate)
CPT/HCPCS: 36415; 80048; 81001; 85027

== ENCOUNTER → 2018-08-12 | Outpatient (CLI) | payer MEDICARE ==
[2018-08-12 10:41] LABS: ASPARTATE AMINO TRANSFERASE 42 U/L (17-59); CHOLESTEROL 106.62 mg/dL (0-200); TRIGLYCERIDES 52 mg/dL (<150)
[2018-08-12 10:53] LABS: DIRECT LDL 63 mg/dL (<100)
== END ==
LOC: OD 09:23
PROVIDERS: ATTEND Family Medicine Geriatric Medicine
DX: E78.5 Hyperlipidemia, unspecified (principal); Z79.899 Other long term (current) drug therapy
CPT/HCPCS: 36415; 80061; 84450

== ENCOUNTER → 2018-10-21 | Outpatient (CLI) | payer MEDICARE ==
[2018-10-21 10:48] LABS: ALANINE AMINOTRANSFERASE 41 U/L (21-72); ALBUMIN 3.9 g/dL (3.5-5.0); ALKALINE PHOSPHATASE 49 U/L (38-126); ASPARTATE AMINO TRANSFERASE 36 U/L (17-59); BILIRUBIN,DIRECT 0.3 mg/dL (0.0-0.4); BILIRUBIN,TOTAL 0.3 mg/dL (0.2-1.3); CHOLESTEROL 105.48 mg/dL (0-200); TOTAL PROTEIN 6.5 g/dL (6.3-8.2); TRIGLYCERIDES 68 mg/dL (<150)
[2018-10-21 11:06] LABS: DIRECT LDL 65 mg/dL (<100)
== END ==
LOC: OD 09:58
PROVIDERS: ATTEND Specialist
DX: I25.118 Atherosclerotic heart disease of native coronary artery with other forms of angina pectoris (principal); R06.02 Shortness of breath; I65.21 Occlusion and stenosis of right carotid artery; I25.2 Old myocardial infarction; E78.5 Hyperlipidemia, unspecified; E11.22 Type 2 diabetes mellitus with diabetic chronic kidney disease; I12.9 Hypertensive chronic kidney disease with stage 1 through stage 4 chronic kidney disease, or unspecified chronic kidney disease; N18.3 Chronic kidney disease, stage 3 (moderate); Z79.899 Other long term (current) drug therapy
CPT/HCPCS: 36415; 80061; 80076

== ENCOUNTER → 2018-11-18 | Outpatient (CLI) | payer MEDICARE ==
[2018-11-18 11:04] LABS: HEMATOCRIT 35.4 % (37.9-51.0); HEMOGLOBIN 11.7 g/dL (13.5-17.0); MEAN CORPUSCULAR HEMOGLOBIN 28.7 pg (27.0-33.4); MEAN CORPUSCULAR HGB CONC 33.2 g/dL (32.0-36.0); MEAN CORPUSCULAR VOLUME 86 fl (80-97); PLATELET COUNT 338 10^3/uL (150-450); RED CELL DISTRIBUTION WIDTH 16.4 % (11.5-14.0); WHITE BLOOD COUNT 5.5 10^3/uL (4.0-10.5)
[2018-11-18 11:11] LABS: APPEARANCE,URINE CLEAR; BILIRUBIN,URINE NEGATIVE (NEGATIVE); COLOR,URINE YELLOW; GLUCOSE, URINE NEGATIVE (NEGATIVE); KETONES,URINE NEGATIVE (NEGATIVE); LEUKOCYTE ESTERASE,URINE NEGATIVE (NEGATIVE); NITRITE,URINE NEGATIVE (NEGATIVE); PROTEIN,URINE NEGATIVE (NEGATIVE); URINE SPECIFIC GRAVITY 1.014; UROBILINOGEN,URINE NEGATIVE mg/dL (<2.0)
[2018-11-18 11:25] LABS: ANION GAP 11 (5-19); BLOOD UREA NITROGEN 23 mg/dL (7-20); CARBON DIOXIDE 24 mmol/L (22-30); CHLORIDE 109 mmol/L (98-107); GLUCOSE 98 mg/dL (75-110); POTASSIUM 4.5 mmol/L (3.6-5.0); SODIUM 143.7 mmol/L (137-145)
== END ==
LOC: OD 10:11
PROVIDERS: ATTEND Physician Assistant Medical
DX: I12.9 Hypertensive chronic kidney disease with stage 1 through stage 4 chronic kidney disease, or unspecified chronic kidney disease (principal); N18.2 Chronic kidney disease, stage 2 (mild); E11.22 Type 2 diabetes mellitus with diabetic chronic kidney disease
CPT/HCPCS: 36415; 80048; 81001; 85027

== ENCOUNTER → 2018-12-13 | Outpatient (CLI) | payer MEDICARE ==
[2018-12-13 11:04] LABS: CHOLESTEROL 110.95 mg/dL (0-200); TRIGLYCERIDES 64 mg/dL (<150)
[2018-12-13 11:15] LABS: DIRECT LDL 64 mg/dL (<100)
== END ==
LOC: OD 09:51
PROVIDERS: ATTEND Internal Medicine
DX: E78.5 Hyperlipidemia, unspecified (principal); E11.8 Type 2 diabetes mellitus with unspecified complications
CPT/HCPCS: 36415; 80061; 83036

== ENCOUNTER → 2018-12-23 | Outpatient (CLI) | payer MEDICARE ==
[~2018-12-23] MED LIST: ALBUTEROL SULFATE 0.083% NEB 2.5 MG/3 ML AMPUL NEB ONE
[2018-12-23 12:49] LABS: ARTERIAL BLOOD BASE EXCESS -1.9 mmol/L; ARTERIAL BLOOD H2CO3 1.16 mmol/L (1.05-1.35); ARTERIAL BLOOD HCO3 22.8 mmol/L (20-24); ARTERIAL BLOOD PCO2 38.7 mmHg (35-45); ARTERIAL BLOOD PH 7.39 (7.35-7.45); ARTERIAL BLOOD PO2 91.5 mmHg (80-100)
[2018-12-23 12:50] LABS: ARTERIAL BLOOD FIO2 ROOM AIR
--- NOTE | 2018-12-24 15:28 | Pulmonary Function Test ---
Pulmonary Function Test Date of Procedure:: 12/23/18 INDICATION:: Dyspnea Referring Provider: Dr. Vasquez [place] Guide: Juliana Gomez [employer] BANK BUSINESS MANAGER - Report Spirometry: Spirometry: pre-FVC: 2.06 L 81% post-FVC 3.18 L 85% pre-FEV:1 2.11 L 71% post-FEV1; 2.25 L 76% pre-FEV1/FVC % 69 post-FEV1/FVC% 71 predicted 79 [id number]% 1.11 L 37% [id number]% 1.38 L 46% Lung Volume: Total lung capacity: 4.29 L 71% Vital capacity: 3.06 L 81% Inspiratory capacity: 2.11 L FRC N2: 2.18 L 67% ERV: 0.56 L RV: 1.24 L 52% RV/TLC %: 29 predicted 40 Diffusion Capactity: DLCO: 16.2 94% DLCO/VA: 3.75 102% Impression: Mild obstructive ventilatory defect with insignificant response to bronchodilator therapy. This in and of itself does not preclude a clinical trial of bronchodilator therapy. Mild restrictive ventilatory defect. (Restrictive defect may mask the degree of his of obstruction.) No hyperinflation or air trapping. Mild decrease in diffusion capacity.
== END ==
LOC: RT 11:56
PROVIDERS: ATTEND Specialist
DX: J44.9 Chronic obstructive pulmonary disease, unspecified (principal); R06.00 Dyspnea, unspecified
CPT/HCPCS: 82803; 94729; 94727; 94060; A9270

== ENCOUNTER → 2019-04-17 | Outpatient (CLI) | payer MEDICARE ==
[2019-04-17 10:28] LABS: ABSOLUTE BASOPHILS # (AUTO) 0.1 10^3/uL (0.0-0.2); ABSOLUTE EOSINOPHILS # (AUTO) 0.1 10^3/uL (0.0-0.6); ABSOLUTE LYMPHOCYTES (AUTO) 2.1 10^3/uL (0.5-4.7); ABSOLUTE MONOCYTES (AUTO) 0.6 10^3/uL (0.1-1.4); ABSOLUTE NEUT (AUTO) 1.8 10^3/uL (1.7-8.2); BASOPHILS % (AUTO) 1.1 % (0-2); HEMATOCRIT 38.1 % (37.9-51.0); HEMOGLOBIN 12.8 g/dL (13.5-17.0); LYMPHOCYTES % (AUTO) 45.4 % (13-45); MEAN CORPUSCULAR HGB CONC 33.6 g/dL (32.0-36.0); MEAN CORPUSCULAR VOLUME 86 fl (80-97); MONOCYTES % (AUTO) 12.8 % (3-13); PLATELET COUNT 295 10^3/uL (150-450); RED BLOOD COUNT 4.42 10^6/uL (4.35-5.55); RED CELL DISTRIBUTION WIDTH 16.5 % (11.5-14.0); SEGMENTED NEUTROPHILS % (AUTO) 38.7 % (42-78); TOTAL CELLS COUNTED % (AUTO) 100 %; WHITE BLOOD COUNT 4.7 10^3/uL (4.0-10.5)
[2019-04-17 10:46] LABS: ANION GAP 12 (5-19); BLOOD UREA NITROGEN 22 mg/dL (7-20); CALCIUM 10.1 mg/dL (8.4-10.2); CARBON DIOXIDE 24 mmol/L (22-30); CHLORIDE 110 mmol/L (98-107); GLUCOSE 108 mg/dL (75-110); POTASSIUM 4.5 mmol/L (3.6-5.0); URIC ACID 6.4 mg/dL (3.5-8.5)
[2019-04-18 11:37] LABS: MICROALBUMIN URINE 160.6 ug/mL (Not Estab.)
== END ==
LOC: OD 09:42
PROVIDERS: ATTEND Family Medicine Geriatric Medicine
DX: I12.9 Hypertensive chronic kidney disease with stage 1 through stage 4 chronic kidney disease, or unspecified chronic kidney disease (principal); N18.3 Chronic kidney disease, stage 3 (moderate); E11.22 Type 2 diabetes mellitus with diabetic chronic kidney disease; E11.21 Type 2 diabetes mellitus with diabetic nephropathy; D63.1 Anemia in chronic kidney disease; E78.5 Hyperlipidemia, unspecified; M10.9 Gout, unspecified; Z79.899 Other long term (current) drug therapy
CPT/HCPCS: 36415; 80048; 82043; 82570; 84460; 84550; 85025

== ENCOUNTER → 2019-05-22 | Outpatient (CLI) | payer MEDICARE ==
[2019-05-22 11:39] LABS: HEMOGLOBIN 12.6 g/dL (13.5-17.0); MEAN CORPUSCULAR HEMOGLOBIN 28.8 pg (27.0-33.4); MEAN CORPUSCULAR HGB CONC 33.1 g/dL (32.0-36.0); MEAN CORPUSCULAR VOLUME 87 fl (80-97); PLATELET COUNT 282 10^3/uL (150-450); RED BLOOD COUNT 4.37 10^6/uL (4.35-5.55); RED CELL DISTRIBUTION WIDTH 16.1 % (11.5-14.0); WHITE BLOOD COUNT 6.2 10^3/uL (4.0-10.5)
[2019-05-22 11:42] LABS: APPEARANCE,URINE CLEAR; BILIRUBIN,URINE NEGATIVE (NEGATIVE); COLOR,URINE YELLOW; GLUCOSE, URINE NEGATIVE (NEGATIVE); KETONES,URINE NEGATIVE (NEGATIVE); LEUKOCYTE ESTERASE,URINE NEGATIVE (NEGATIVE); NITRITE,URINE NEGATIVE (NEGATIVE); PROTEIN,URINE 100 mg/dL (NEGATIVE); URINE SPECIFIC GRAVITY 1.013; UROBILINOGEN,URINE NEGATIVE mg/dL (<2.0)
[2019-05-22 11:54] LABS: ANION GAP 14 (5-19); BLOOD UREA NITROGEN 19 mg/dL (7-20); CALCIUM 10.2 mg/dL (8.4-10.2); CARBON DIOXIDE 25 mmol/L (22-30); CHLORIDE 105 mmol/L (98-107); GLUCOSE 113 mg/dL (75-110); POTASSIUM 4.2 mmol/L (3.6-5.0)
== END ==
LOC: OD 10:18
PROVIDERS: ATTEND Internal Medicine Nephrology
DX: I12.9 Hypertensive chronic kidney disease with stage 1 through stage 4 chronic kidney disease, or unspecified chronic kidney disease (principal); N18.3 Chronic kidney disease, stage 3 (moderate); E11.9 Type 2 diabetes mellitus without complications
CPT/HCPCS: 36415; 80048; 81001; 85027

== ENCOUNTER → 2019-07-29 | Outpatient (CLI) | payer MEDICARE ==
--- NOTE | 2019-07-29 13:35 | RADIOLOGY REPORT (SQ) ---
EXAM DESCRIPTION: LUMBAR SPINE COMPLETE COMPLETED DATE/TIME: 07/29/2019 12:17 pm REASON FOR STUDY: LBP M54.5 LOW BACK PAIN COMPARISON: None. NUMBER OF VIEWS: Five views including obliques. TECHNIQUE: AP, lateral, oblique, and sacral radiographic images acquired of the lumbar spine. LIMITATIONS: None. FINDINGS: MINERALIZATION: Normal. SEGMENTATION: Normal. No transitional anatomy. ALIGNMENT: Normal. VERTEBRAE: Maintained height. No fracture or worrisome bone lesion. DISCS: Disc spaces are maintained. Marginal osteophytes are present at multiple levels. POSTERIOR ELEMENTS: Hypertrophic facet changes seen from the mid to lower lumbar spine. HARDWARE: None in the spine. PARASPINAL SOFT TISSUES: Normal. PELVIS: Intact as visualized. No fractures or worrisome bone lesions. SI joints intact. OTHER: No other significant finding. IMPRESSION: Spondylosis, facet arthropathy, no acute finding. TECHNICAL DOCUMENTATION: JOB ID: [id number] 2010 [employer]- All Rights Reserved Reading location - IP/workstation name: [email or web address]
--- NOTE | 2019-07-29 13:38 | RADIOLOGY REPORT (SQ) ---
EXAM DESCRIPTION: SACRUM AND COCCYX COMPLETED DATE/TIME: 07/29/2019 12:17 pm REASON FOR STUDY: LBP M54.5 LOW BACK PAIN COMPARISON: None. NUMBER OF VIEWS: Three views. TECHNIQUE: AP, lateral, and tilt views of the sacrum and coccyx. LIMITATIONS: None. FINDINGS: MINERALIZATION: Normal. BONES: No acute fracture or dislocation. No worrisome bone lesions. SOFT TISSUES: No soft tissue swelling. No foreign body. OTHER: No other significant finding. IMPRESSION: NEGATIVE STUDY OF THE SACRUM AND COCCYX. TECHNICAL DOCUMENTATION: JOB ID: [id number] 2011 [email or web address]- All Rights Reserved Reading location - IP/workstation name: [email or web address]
== END ==
LOC: OD 11:41
PROVIDERS: ATTEND Family Medicine Geriatric Medicine
DX: M54.5 Low back pain (principal)
CPT/HCPCS: 72110; 72220

== ENCOUNTER → 2019-08-13 | Outpatient (CLI) | payer MEDICARE ==
[2019-08-13 09:50] LABS: ABSOLUTE EOSINOPHILS # (AUTO) 0.1 10^3/uL (0.0-0.6); ABSOLUTE LYMPHOCYTES (AUTO) 2.1 10^3/uL (0.5-4.7); ABSOLUTE MONOCYTES (AUTO) 0.8 10^3/uL (0.1-1.4); ABSOLUTE NEUT (AUTO) 3.6 10^3/uL (1.7-8.2); BASOPHILS % (AUTO) 0.5 % (0-2); EOSINOPHILS % (AUTO) 1.6 % (0-6); HEMATOCRIT 35.4 % (37.9-51.0); HEMOGLOBIN 11.9 g/dL (13.5-17.0); LYMPHOCYTES % (AUTO) 31.9 % (13-45); MEAN CORPUSCULAR HGB CONC 33.7 g/dL (32.0-36.0); MEAN CORPUSCULAR VOLUME 86 fl (80-97); MONOCYTES % (AUTO) 11.3 % (3-13); PLATELET COUNT 275 10^3/uL (150-450); RED BLOOD COUNT 4.11 10^6/uL (4.35-5.55); RED CELL DISTRIBUTION WIDTH 16.4 % (11.5-14.0); SEGMENTED NEUTROPHILS % (AUTO) 54.7 % (42-78); TOTAL CELLS COUNTED % (AUTO) 100 %; WHITE BLOOD COUNT 6.6 10^3/uL (4.0-10.5)
[2019-08-13 10:08] LABS: CHOLESTEROL 107.35 mg/dL (0-200); TRIGLYCERIDES 58 mg/dL (<150)
[2019-08-13 10:19] LABS: DIRECT LDL 62 mg/dL (<100)
== END ==
LOC: OD 08:51
PROVIDERS: ATTEND Family Medicine Geriatric Medicine
DX: E78.5 Hyperlipidemia, unspecified (principal); E11.21 Type 2 diabetes mellitus with diabetic nephropathy; Z79.899 Other long term (current) drug therapy
CPT/HCPCS: 36415; 80061; 83036; 84460; 85025

== ENCOUNTER → 2019-11-19 | Outpatient (CLI) | payer MEDICARE ==
[2019-11-19 10:56] LABS: APPEARANCE,URINE CLEAR; BILIRUBIN,URINE NEGATIVE (NEGATIVE); COLOR,URINE YELLOW; GLUCOSE, URINE NEGATIVE (NEGATIVE); KETONES,URINE NEGATIVE (NEGATIVE); LEUKOCYTE ESTERASE,URINE NEGATIVE (NEGATIVE); NITRITE,URINE NEGATIVE (NEGATIVE); PROTEIN,URINE 30 mg/dL (NEGATIVE); URINE SPECIFIC GRAVITY 1.018; UROBILINOGEN,URINE NEGATIVE mg/dL (<2.0)
[2019-11-19 11:00] LABS: ABSOLUTE EOSINOPHILS # (AUTO) 0.1 10^3/uL (0.0-0.6); ABSOLUTE LYMPHOCYTES (AUTO) 1.7 10^3/uL (0.5-4.7); ABSOLUTE MONOCYTES (AUTO) 0.6 10^3/uL (0.1-1.4); ABSOLUTE NEUT (AUTO) 2.5 10^3/uL (1.7-8.2); BASOPHILS % (AUTO) 0.7 % (0-2); EOSINOPHILS % (AUTO) 1.5 % (0-6); HEMATOCRIT 37.2 % (37.9-51.0); HEMOGLOBIN 12.2 g/dL (13.5-17.0); LYMPHOCYTES % (AUTO) 34.9 % (13-45); MEAN CORPUSCULAR HEMOGLOBIN 27.8 pg (27.0-33.4); MEAN CORPUSCULAR HGB CONC 32.9 g/dL (32.0-36.0); MEAN CORPUSCULAR VOLUME 85 fl (80-97); MONOCYTES % (AUTO) 12.9 % (3-13); PLATELET COUNT 271 10^3/uL (150-450); RED CELL DISTRIBUTION WIDTH 16.9 % (11.5-14.0); TOTAL CELLS COUNTED % (AUTO) 100 %; WHITE BLOOD COUNT 4.9 10^3/uL (4.0-10.5)
[2019-11-19 11:04] LABS: ADD MANUAL MICROSCOPIC YES
[2019-11-19 11:09] LABS: RBC,URINE NONE SEEN /HPF; WBC,URINE 0-1 /HPF
[2019-11-19 11:13] LABS: ALBUMIN 3.9 g/dL (3.5-5.0); ANION GAP 8 (5-19); BLOOD UREA NITROGEN 24 mg/dL (7-20); CARBON DIOXIDE 24 mmol/L (22-30); CHLORIDE 110 mmol/L (98-107); GLUCOSE 114 mg/dL (75-110); PHOSPHORUS 2.7 mg/dL (2.5-4.5); POTASSIUM 4.5 mmol/L (3.6-5.0)
[2019-11-19 11:15] LABS: UR PRO/CREAT RATIO RESULT 0.2 mg/mg (0.0-0.2); URINE CREATININE 166.5 mg/dL (22-328); URINE PROTEIN 25.5 mg/dL (<12)
== END ==
LOC: OD 10:22
PROVIDERS: ATTEND Physician Assistant Medical
DX: I12.9 Hypertensive chronic kidney disease with stage 1 through stage 4 chronic kidney disease, or unspecified chronic kidney disease (principal); N18.2 Chronic kidney disease, stage 2 (mild); E11.22 Type 2 diabetes mellitus with diabetic chronic kidney disease; R80.9 Proteinuria, unspecified; E87.1 Hypo-osmolality and hyponatremia
CPT/HCPCS: 36415; 80069; 81001; 82570; 84156; 85025

== ENCOUNTER → 2019-12-18 | Outpatient (CLI) | payer MEDICARE ==
[2019-12-18 09:57] LABS: ANION GAP 7 (5-19); BLOOD UREA NITROGEN 36 mg/dL (7-20); CALCIUM 9.9 mg/dL (8.4-10.2); CARBON DIOXIDE 25 mmol/L (22-30); CHLORIDE 110 mmol/L (98-107); GLUCOSE 109 mg/dL (75-110); POTASSIUM 5.3 mmol/L (3.6-5.0)
[2019-12-19 13:37] LABS: CREATININE URINE 103.8 mg/dL (Not Estab.)
== END ==
LOC: OD 08:54
PROVIDERS: ATTEND Family Medicine Geriatric Medicine
DX: E11.21 Type 2 diabetes mellitus with diabetic nephropathy (principal); I10 Essential (primary) hypertension; Z79.899 Other long term (current) drug therapy
CPT/HCPCS: 36415; 80048; 82043; 82570; 83036

== ENCOUNTER → 2019-12-24 | Outpatient (CLI) | payer MEDICARE ==
[2019-12-24 10:57] LABS: ANION GAP 8 (5-19); BLOOD UREA NITROGEN 34 mg/dL (7-20); CALCIUM 10.1 mg/dL (8.4-10.2); CARBON DIOXIDE 25 mmol/L (22-30); CHLORIDE 109 mmol/L (98-107); GLUCOSE 105 mg/dL (75-110); POTASSIUM 5.1 mmol/L (3.6-5.0)
== END ==
LOC: OD 09:30
PROVIDERS: ATTEND Family Medicine Geriatric Medicine
DX: E87.5 Hyperkalemia (principal)
CPT/HCPCS: 36415; 80048

== ENCOUNTER → 2020-01-20 | Outpatient (CLI) | payer MEDICARE ==
[2020-01-20 10:49] LABS: ABSOLUTE EOSINOPHILS # (AUTO) 0.1 10^3/uL (0.0-0.6); ABSOLUTE MONOCYTES (AUTO) 0.8 10^3/uL (0.1-1.4); ABSOLUTE NEUT (AUTO) 3.3 10^3/uL (1.7-8.2); BASOPHILS % (AUTO) 0.7 % (0-2); EOSINOPHILS % (AUTO) 1.4 % (0-6); HEMATOCRIT 38.3 % (37.9-51.0); HEMOGLOBIN 12.5 g/dL (13.5-17.0); LYMPHOCYTES % (AUTO) 32.4 % (13-45); MEAN CORPUSCULAR HEMOGLOBIN 28.1 pg (27.0-33.4); MEAN CORPUSCULAR HGB CONC 32.7 g/dL (32.0-36.0); MEAN CORPUSCULAR VOLUME 86 fl (80-97); MONOCYTES % (AUTO) 12.7 % (3-13); PLATELET COUNT 237 10^3/uL (150-450); RED BLOOD COUNT 4.46 10^6/uL (4.35-5.55); RED CELL DISTRIBUTION WIDTH 17.7 % (11.5-14.0); SEGMENTED NEUTROPHILS % (AUTO) 52.8 % (42-78); TOTAL CELLS COUNTED % (AUTO) 100 %; WHITE BLOOD COUNT 6.3 10^3/uL (4.0-10.5)
[2020-01-20 11:04] LABS: ANION GAP 7 (5-19); BLOOD UREA NITROGEN 20 mg/dL (7-20); CALCIUM 9.4 mg/dL (8.4-10.2); CARBON DIOXIDE 26 mmol/L (22-30); CHLORIDE 108 mmol/L (98-107); GLUCOSE 115 mg/dL (75-110); PHOSPHORUS 3.4 mg/dL (2.5-4.5); POTASSIUM 4.4 mmol/L (3.6-5.0)
[2020-01-20 11:09] LABS: APPEARANCE,URINE SLIGHTLY-CLOUDY; BILIRUBIN,URINE NEGATIVE (NEGATIVE); GLUCOSE, URINE NEGATIVE (NEGATIVE); KETONES,URINE TRACE mg/dL (NEGATIVE); LEUKOCYTE ESTERASE,URINE NEGATIVE (NEGATIVE); NITRITE,URINE NEGATIVE (NEGATIVE); PROTEIN,URINE 100 mg/dL (NEGATIVE); URINE SPECIFIC GRAVITY 1.026
[2020-01-20 11:10] LABS: COLOR,URINE YELLOW
== END ==
LOC: OD 10:15
PROVIDERS: ATTEND Physician Assistant Medical
DX: E11.22 Type 2 diabetes mellitus with diabetic chronic kidney disease (principal); N18.3 Chronic kidney disease, stage 3 (moderate); R80.9 Proteinuria, unspecified
CPT/HCPCS: 36415; 80069; 81001; 83970; 85025

== ENCOUNTER → 2020-04-27 | Outpatient (CLI) | payer MEDICARE ==
[2020-04-27 10:49] LABS: ANION GAP 7 (5-19); BLOOD UREA NITROGEN 19 mg/dL (7-20); CALCIUM 9.5 mg/dL (8.4-10.2); CARBON DIOXIDE 27 mmol/L (22-30); CHLORIDE 107 mmol/L (98-107); GLUCOSE 109 mg/dL (75-110); POTASSIUM 3.8 mmol/L (3.6-5.0); TRIGLYCERIDES 72 mg/dL (<150)
[2020-04-27 10:50] LABS: CHOLESTEROL 94.85 mg/dL (0-200)
[2020-04-27 11:03] LABS: DIRECT LDL 38 mg/dL (<100)
[2020-04-28 11:38] LABS: CREATININE URINE 192.5 mg/dL (Not Estab.); MICROALBUMIN URINE 385.9 ug/mL (Not Estab.)
== END ==
LOC: OD 09:16
PROVIDERS: ATTEND Family Medicine Geriatric Medicine
DX: I10 Essential (primary) hypertension (principal); Z79.899 Other long term (current) drug therapy
CPT/HCPCS: 36415; 80048; 80061; 82043; 82570; 83036; 84460

== ENCOUNTER 2020-05-10 09:11 | Emergency (ER) | payer MEDICARE ==
[2020-05-10 09:49] LABS: ABSOLUTE LYMPHOCYTES (AUTO) 0.9 10^3/uL (0.5-4.7); ABSOLUTE MONOCYTES (AUTO) 0.9 10^3/uL (0.1-1.4); ABSOLUTE NEUT (AUTO) 4.7 10^3/uL (1.7-8.2); BASOPHILS % (AUTO) 0.4 % (0-2); EOSINOPHILS % (AUTO) 0.3 % (0-6); HEMATOCRIT 36.9 % (37.9-51.0); HEMOGLOBIN 12.4 g/dL (13.5-17.0); LYMPHOCYTES % (AUTO) 13.5 % (13-45); MEAN CORPUSCULAR HEMOGLOBIN 28.3 pg (27.0-33.4); MEAN CORPUSCULAR HGB CONC 33.7 g/dL (32.0-36.0); MEAN CORPUSCULAR VOLUME 84 fl (80-97); MONOCYTES % (AUTO) 13.7 % (3-13); PLATELET COUNT 233 10^3/uL (150-450); RED BLOOD COUNT 4.39 10^6/uL (4.35-5.55); RED CELL DISTRIBUTION WIDTH 15.9 % (11.5-14.0); SEGMENTED NEUTROPHILS % (AUTO) 72.1 % (42-78); TOTAL CELLS COUNTED % (AUTO) 100 %; WHITE BLOOD COUNT 6.6 10^3/uL (4.0-10.5)
--- NOTE | 2020-05-10 10:07 | RADIOLOGY REPORT (SQ) ---
EXAM DESCRIPTION: CHEST SINGLE VIEW IMAGES COMPLETED DATE/TIME: 05/10/2020 9:48 am REASON FOR STUDY: shortness of breath COMPARISON: 03/19/2018 EXAM PARAMETERS: NUMBER OF VIEWS: One view. TECHNIQUE: Single frontal radiographic view of the chest acquired. RADIATION DOSE: NA LIMITATIONS: The right costophrenic angle is clipped. FINDINGS: LUNGS AND PLEURA: Ill-defined peripheral infiltrates on the right. Atypical pneumonia or viral pneumonia are suspected. No pneumothorax. The left lung field is grossly clear. MEDIASTINUM AND HILAR STRUCTURES: No masses. Contour normal. HEART AND VASCULAR STRUCTURES: Heart normal in size. Normal vasculature. BONES: No displaced rib fractures. HARDWARE: None in the chest. OTHER: No other significant finding. IMPRESSION: Asymmetric peripheral infiltrates throughout the right lung field suspicious for atypica l or viral pneumonia. No pneumothorax. No displaced rib fractures. TECHNICAL DOCUMENTATION: JOB ID: [id number] 2010 [employer]- All Rights Reserved Reading location - IP/workstation name: [email or web address]
[2020-05-10 10:09] LABS: ALBUMIN 3.2 g/dL (3.5-5.0); ALKALINE PHOSPHATASE 161 U/L (38-126); ANION GAP 7 (5-19); BILIRUBIN,DIRECT 0.7 mg/dL (0.0-0.4); BILIRUBIN,TOTAL 1.4 mg/dL (0.2-1.3); BLOOD UREA NITROGEN 27 mg/dL (7-20); CALCIUM 8.7 mg/dL (8.4-10.2); CARBON DIOXIDE 26 mmol/L (22-30); CHLORIDE 106 mmol/L (98-107); GLUCOSE 107 mg/dL (75-110); POTASSIUM 3.4 mmol/L (3.6-5.0); TOTAL PROTEIN 6.6 g/dL (6.3-8.2)
[2020-05-10 10:18] LABS: ASPARTATE AMINO TRANSFERASE 952 U/L (17-59)
--- NOTE | 2020-05-10 10:44 | EKG REPORT ---
SEVERITY:- ABNORMAL ECG - SINUS RHYTHM PROBABLE LEFT VENTRICULAR HYPERTROPHY : Confirmed by: Armen Molina MD 10-May-2020 10:43:16
--- NOTE | 2020-05-10 10:44 | ER Document Report ---
ED General - General Chief Complaint: Breathing Difficulty Stated Complaint: SHORTNESS OF BREATH Time Seen by Provider: 05/10/20 10:21 Primary Care Provider: MANDEEP OJEDA MD [Primary Care Provider] - Follow up as needed TRAVEL OUTSIDE OF THE [place] IN LAST 30 DAYS: No - HPI Notes: Patient is a 69-year-old male who presents emergency department for evaluation of increased shortness of breath. He was diagnosed with Covid 1918 days ago. He states he had a cough, some nausea vomiting, diarrhea. He states he still just feels more short of breath. He states the vomiting and diarrhea have resolved. He denies any pain of any sort. He states he just can barely function without feeling extremely short of breath. Otherwise, he has been taking his medications as prescribed. He cannot tell me what any of those medications are. He has a history of recurrent pneumothoraces, was concerned that is what might have happened. - Related Data Allergies/Adverse Reactions: adhesive tape Adverse Reaction (Verified 11/18/17 07:50) Past Medical History - General Information source: Patient - Social History Smoking Status: Never Smoker Chew tobacco use (# tins/day): No Frequency of alcohol use: None Drug Abuse: None Family History: Reviewed & Not Pertinent Patient has homicidal ideation: No - Past Medical History Cardiac Medical History: Reports: Hx Heart Attack - 2006, Hx Hypercholesterolemia, Hx Hypertension Pulmonary Medical History: Denies: Hx Asthma Neurological Medical History: Denies: Hx Cerebrovascular Accident, Hx Seizures Endocrine Medical History: Reports: Hx Diabetes Mellitus Type 2 Renal/ Medical History: Denies: Hx Peritoneal Dialysis GI Medical History: Denies: Hx Hepatitis, Hx Hiatal Hernia, Hx Ulcer Musculoskeletal Medical History: Reports Hx Gout Infectious Medical History: Denies: Hx Hepatitis Past Surgical History: Reports: Hx Orthopedic Surgery - back. Denies: Hx Open Heart Surgery, Hx Pacemaker - Immunizations Hx Diphtheria, Pertussis, Tetanus Vaccination: No Review of Systems - Review of Systems Constitutional: See HPI EENT: See HPI Cardiovascular: No symptoms reported Respiratory: See HPI Gastrointestinal: See HPI Genitourinary: No symptoms reported Musculoskeletal: No symptoms reported Skin: No symptoms reported Neurological/Psychological: No symptoms reported Physical Exam - Vital signs Vitals: Temp Pulse Ox 98.5 F 95 05/10/20 09:28 05/10/20 09:28 - Notes Notes: Vital signs reviewed, please refer to chart. Head is normocephalic, atraumatic. Pupils equal round, reactive to light. Neck is supple without meningismus. Heart is regular rate and rhythm. Lungs are clear to auscultation bilaterally. Abdomen is soft, nontender, normoactive bowel sounds throughout. Extremities without cyanosis, clubbing. Posterior calves are nontender. Peripheral pulses are equal. Skin is warm and dry. Patient is awake, alert, neurological exam is nonfocal. Course - Re-evaluation Re-evalutation: 05/10/20 10:43 Patient presents emergency department for evaluation. He has known COVID-19 infection. On arrival his vital signs are largely unremarkable. He is not tachypneic. He is not visually dyspneic. Laboratory investigations, however, do reveal an elevation in LFTs. I will order right upper quadrant ultrasound. Otherwise his creatinine seems to be about baseline. His respiratory rate is currently 19 and unlabored, 93% on room air at rest. We will continue to monitor. 05/10/20 14:27 Patient remained short of breath. Right upper quadrant ultrasound was unremarkable for any acute surgical findings. Given the elevation in his transaminases, his Covid, and his other comorbidities, I do believe this patient is a candidate for admission. Will contact medicine for further evaluation. 05/10/20 14:35 Discussed this with the patient, he is unsure as to whether or not he wants admission at this time. He will discuss it with his daughter. We discussed that he will have to leave AGAINST MEDICAL ADVICE. 05/10/20 15:[address] Sagastume, as the patient eventually agreed to stay here in the hospital. She was concerned that the patient did not really meet admission criteria despite his abnormal labs. I will ambulate the patient to evaluate for hypoxia. Currently awaiting results. 05/10/20 15:50 I was notified by nursing that patient did not significantly desaturate with ambulation. I spoke again with Dr. Sagastume. Because of his elevated LFTs he does not qualify for antivirals. He is not oxygen requiring. Outpatient follow-up is reasonable at this point. I will discharge the patient home with close follow-up with his primary care provider. He is to call him, let him know about his elevated liver enzymes and the need for close recheck. He voiced understanding will be discharged. - Vital Signs Vital signs: Temp Pulse Resp BP Pulse Ox 98.5 F 11 L 137/70 H 93 05/10/20 09:28 05/10/20 14:01 05/10/20 14:00 05/10/20 14:01 - Laboratory Result Diagrams: 05/10/20 09:32 05/10/20 09:32 Laboratory results interpreted by me: 05/10/20 05/10/20 05/10/20 09:32 09:32 10:41 Hgb 12.4 L Hct 36.9 L RDW 15.9 H Burnett % (Auto) 13.7 H Potassium 3.4 L BUN 27 H Creatinine 1.90 H Est GFR ( Amer) 43 L Est GFR (MDRD) Non-Af 35 L Total Bilirubin 1.4 H Direct Bilirubin 0.7 H AST 952 H ALT 912 H Alkaline Phosphatase 161 H Albumin 3.2 L Urine Protein >=500 H Urine Blood LARGE H Urine Urobilinogen 4.0 H - Diagnostic Test Radiology reviewed: Reports reviewed Radiology results interpreted by me: 05/10/20 10:43 Chest X-Ray 05/10/20 09:19 IMPRESSION: Asymmetric peripheral infiltrates throughout the right lung field suspicious for atypical or viral pneumonia. No pneumothorax. No displaced rib fractures. 05/10/20 14:26 Chest X-Ray 05/10/20 09:19 IMPRESSION: Asymmetric peripheral infiltrates throughout the right lung field suspicious for atypical or viral pneumonia. No pneumothorax. No displaced rib fractures. Abdomen Ultrasound 05/10/20 12:50 IMPRESSION: Right renal cyst. No other significant findings. - EKG Interpretation by Me Additional EKG results interpreted by me: 05/10/20 10:44 Sinus mechanism with rate of 64 bpm. Normal axis and intervals. No acute ST changes concerning for ischemia or infarction Discharge - Discharge Clinical Impression: Pneumonia due to COVID-19 virus, Elevated transaminase level Condition: Stable Disposition: HOME, SELF-CARE Instructions: Viral Syndrome ([facility]), COVID-19 Guidance for Persons Under Investigation Additional Instructions: Your findings today are consistent with pneumonia from COVID-19. On lab work today, your liver function tests, or your AST and ALT, were elevated. These should be rechecked within the week by your primary care provider. Please call his office for a follow-up appointment. If at any point you develop pain, increased difficulty breathing, or any other new or concerning symptoms, please return immediately to the emergency department for reevaluation. Referrals: MANDEEP OJEDA MD [Primary Care Provider] - Follow up as needed
[2020-05-10 11:11] LABS: APPEARANCE,URINE CLOUDY; BILIRUBIN,URINE NEGATIVE (NEGATIVE); COLOR,URINE AMBER; GLUCOSE, URINE NEGATIVE (NEGATIVE); KETONES,URINE NEGATIVE (NEGATIVE); LEUKOCYTE ESTERASE,URINE NEGATIVE (NEGATIVE); NITRITE,URINE NEGATIVE (NEGATIVE); PROTEIN,URINE >=500 mg/dL (NEGATIVE)
--- NOTE | 2020-05-10 14:13 | RADIOLOGY REPORT (SQ) ---
EXAM DESCRIPTION: U/S ABDOMEN LIMITED W/O DOP IMAGES COMPLETED DATE/TIME: 05/10/2020 2:02 pm REASON FOR STUDY: RUQ US, elevated enzymes COMPARISON: None. TECHNIQUE: Dynamic and static grayscale images acquired of the abdomen and recorded on PACS. Additio nal selected color Doppler and spectral images recorded. LIMITATIONS: None. FINDINGS: PANCREAS: Pancreas is largely obscured by overlying bowel gas. The pancreatic head is vis ualized. The pancreatic duct is measured 5 mm in the pancreatic head. LIVER: No masses. Echotexture normal. LIVER VASCULATURE: Normal directional flow of the main portal vein and hepatic veins. GALLBLADDER: No stones. Normal wall thickness. No pericholecystic fluid. ULTRASOUND-DETECTED MONTES'S SIGN: Negative. INTRAHEPATIC DUCTS AND COMMON DUCT: CBD and intrahepatic ducts normal caliber. No filling defects. AORTA: No aneurysm. RIGHT KIDNEY: Several small right renal cysts. No hydronephrosis. PERITONEAL AND RIGHT PLEURAL SPACE: No ascites or effusions. OTHER: No other significant findings. IMPRESSION: Right renal cyst. No other significant findings. TECHNICAL DOCUMENTATION: JOB ID: [id number] Dr [employer]- All Rights Reserved Reading location - IP/workstation name: [email or web address]
[2020-05-10] MEDS ORDERED: DEXAMETHASONE SOD PHOSPHATE INJ 4 MG/1 ML VIAL IV ONE (14:25)
[2020-05-10 16:15] VITALS: BP 127/69
== END 2020-05-10 16:15 | disposition home or self-care (01) ==
LOC: ER 09:11
DX: U07.1 COVID-19 (principal); J12.89 Other viral pneumonia; R79.89 Other specified abnormal findings of blood chemistry; R05 Cough; R11.2 Nausea with vomiting, unspecified; R06.02 Shortness of breath; R19.7 Diarrhea, unspecified
CPT/HCPCS: 93005; 99285; 96374; 36415; 87086; 85025; 80053; 81001; 71045; 76705; 93010; J1100

== ENCOUNTER 2020-05-17 10:06 | Emergency (ER) | payer MEDICARE ==
[2020-05-17 12:58] LABS: ABSOLUTE LYMPHOCYTES (AUTO) 1.7 10^3/uL (0.5-4.7); ABSOLUTE MONOCYTES (AUTO) 1.4 10^3/uL (0.1-1.4); ABSOLUTE NEUT (AUTO) 7.6 10^3/uL (1.7-8.2); BASOPHILS % (AUTO) 0.3 % (0-2); EOSINOPHILS % (AUTO) 0.3 % (0-6); HEMATOCRIT 38.9 % (37.9-51.0); HEMOGLOBIN 13.1 g/dL (13.5-17.0); LYMPHOCYTES % (AUTO) 15.8 % (13-45); MEAN CORPUSCULAR HEMOGLOBIN 28.5 pg (27.0-33.4); MEAN CORPUSCULAR HGB CONC 33.6 g/dL (32.0-36.0); MEAN CORPUSCULAR VOLUME 85 fl (80-97); MONOCYTES % (AUTO) 12.9 % (3-13); PLATELET COUNT 463 10^3/uL (150-450); RED BLOOD COUNT 4.59 10^6/uL (4.35-5.55); SEGMENTED NEUTROPHILS % (AUTO) 70.7 % (42-78); TOTAL CELLS COUNTED % (AUTO) 100 %; WHITE BLOOD COUNT 10.8 10^3/uL (4.0-10.5)
[2020-05-17 13:02] LABS: APPEARANCE,URINE CLEAR; BILIRUBIN,URINE NEGATIVE (NEGATIVE); COLOR,URINE YELLOW; GLUCOSE, URINE NEGATIVE (NEGATIVE); KETONES,URINE NEGATIVE (NEGATIVE); LEUKOCYTE ESTERASE,URINE NEGATIVE (NEGATIVE); NITRITE,URINE NEGATIVE (NEGATIVE); PROTEIN,URINE 100 mg/dL (NEGATIVE); URINE SPECIFIC GRAVITY 1.021; UROBILINOGEN,URINE NEGATIVE mg/dL (<2.0)
[2020-05-17 13:06] LABS: ALBUMIN 3.3 g/dL (3.5-5.0); ALKALINE PHOSPHATASE 128 U/L (38-126); ANION GAP 8 (5-19); ASPARTATE AMINO TRANSFERASE 54 U/L (17-59); BILIRUBIN,DIRECT 0.2 mg/dL (0.0-0.4); BILIRUBIN,TOTAL 0.6 mg/dL (0.2-1.3); BLOOD UREA NITROGEN 31 mg/dL (7-20); CALCIUM 9.5 mg/dL (8.4-10.2); CARBON DIOXIDE 32 mmol/L (22-30); CHLORIDE 102 mmol/L (98-107); GLUCOSE 114 mg/dL (75-110); POTASSIUM 3.7 mmol/L (3.6-5.0)
--- NOTE | 2020-05-17 14:54 | RADIOLOGY REPORT (SQ) ---
EXAM DESCRIPTION: KUB/ABDOMEN (SINGLE VIEW) IMAGES COMPLETED DATE/TIME: 05/17/2020 2:42 pm REASON FOR STUDY: nephrolithiasis COMPARISON: None. NUMBER OF VIEWS: One view. TECHNIQUE: AP supine views of the abdomen were obtained. LIMITATIONS: None. FINDINGS: BOWEL GAS PATTERN: There is a moderate burden of fecal material within the colon. There a re no dilated loops of bowel. CALCIFICATIONS: No dilated loops of bowel projecting within the renal fossae or along the expected co urse of the ureters. SOFT TISSUES: No acute gross abnormality. HARDWARE: None. BONES: Degenerative spondylosis of the lumbar spine. OTHER: No other findings. IMPRESSION: 1. Nonobstructive bowel gas pattern. 2. No calcifications projecting within the renal fossae or along the expected course of the ureters. TECHNICAL DOCUMENTATION: JOB ID: [id number] 2010 [employer]- All Rights Reserved Reading location - IP/workstation name: [email or web address]
--- NOTE | 2020-05-17 15:10 | ER Document Report ---
ED General - General Chief Complaint: Nausea/Vomiting Stated Complaint: ADOMINAL PAIN,VOMITING Time Seen by Provider: 05/17/20 13:22 Primary Care Provider: MANDEEP OJEDA MD [Primary Care Provider] - Follow up as needed Mode of Arrival: Ambulatory Information source: Patient TRAVEL OUTSIDE OF THE [place] IN LAST 30 DAYS: No - HPI Notes: 69-year-old male presents to ED for evaluation of abdominal pain starting last night. Patient reports pain is located throughout the abdomen. Notes that he had episode of vomiting. Patient states pain is improved. He reports he was eating soup at the time. Patient is Covid positive. He reports that he was tested back in April. He is close to the end of his quarantine. Denies radiation of pain. Patient denies burning with urination, chest pain, shortness of breath, back pain, rash, fever, chills, diarrhea. Denies blood in his stool or vomit. - Related Data Allergies/Adverse Reactions: adhesive tape Adverse Reaction (Verified 11/18/17 07:50) Home Medications: see note Past Medical History - Social History Smoking Status: Never Smoker Chew tobacco use (# tins/day): No Frequency of alcohol use: None Drug Abuse: None Family History: Reviewed & Not Pertinent Patient has homicidal ideation: No - Past Medical History Cardiac Medical History: Reports: Hx Heart Attack - 2005, Hx Hypercholesterolemia, Hx Hypertension Pulmonary Medical History: Denies: Hx Asthma Neurological Medical History: Denies: Hx Cerebrovascular Accident, Hx Seizures Endocrine Medical History: Reports: Hx Diabetes Mellitus Type 2 Renal/ Medical History: Denies: Hx Peritoneal Dialysis GI Medical History: Denies: Hx Hepatitis, Hx Hiatal Hernia, Hx Ulcer Musculoskeletal Medical History: Reports Hx Gout Infectious Medical History: Denies: Hx Hepatitis Past Surgical History: Reports: Hx Orthopedic Surgery - back. Denies: Hx Open Heart Surgery, Hx Pacemaker - Immunizations Hx Diphtheria, Pertussis, Tetanus Vaccination: No Review of Systems - Review of Systems Notes: Constitutional: Negative for fever. + for nausea and vomiting HENT: Negative for sore throat. Eyes: Negative for visual changes. Cardiovascular: Negative for chest pain. Respiratory: Negative for shortness of breath. Gastrointestinal: Negative for abdominal pain, vomiting or diarrhea. Genitourinary: Negative for dysuria. Musculoskeletal: Negative for back pain. Skin: Negative for rash. Neurological: Negative for headaches, weakness or numbness. 10 point ROS negative except as marked above and in HPI. Physical Exam - Vital signs Vitals: Temp 97.8 F 05/17/20 10:10 General: No acute distress. Alert and oriented x3. Sitting comfortably in a stretcher. Skin: No jaundice, pallor, petechiae, or rashes. Warm and dry. HEENT: Normocephalic, atraumatic. Pupils are equal round reactive to light and accommodation. Extraocular movements are intact. TMs without erythema or bulging. Canals are clear. Nares patent without any discharge. Teeth in good condition. Pharynx without erythema, edema, or exudates. Mucous membranes moist. No tonsillar enlargement. Uvula is midline. Airway is patent. Neck: Supple with no lymphadenopathy. Full range of motion. Heart: Regular rate and rhythm. S1,S2. No murmurs, rubs, or gallops. Lungs: Clear to auscultation bilaterally. No wheezes, rhonchi, rales. Equal chest expansion. No retractions. Abdomen: Soft, nontender to palpation, nondistended. Positive bowel sounds in all 4 quadrants. No masses. No CVA tenderness bilaterally. Back: No midline spinal TTP. No paraspinous muscular TTP. Neuro: GCS 15. Moving all extremities without discomfort. Psych: Mood and affect appropriate. Course - Vital Signs Vital signs: Temp Pulse Resp BP Pulse Ox 97.4 F 65 20 149/71 H 99 05/17/20 15:25 05/17/20 15:25 05/17/20 15:25 05/17/20 15:25 05/17/20 15:25 05/17/20 18:21 69-year-old male recently diagnosed with Covid presents to ED for evaluation of episode of nausea and vomiting last night. Also reported diffuse abdominal pain. Reports no pain at this time. Patient states that his nausea and vomiting is resolving. He denies any persistent fevers or chills. Reports that he overall feels improved from prior. Patient reports he was concerned due to his presentation and subsequently presented to the ED. Patient was evaluated with labs which do show a mild WBC count of 10.8. Patient's platelets are elevated at 463. I do believe that this is concentrated. Patient's BUN and creatinine is elevated at 31 and 1.33. This does appear somewhat baseline for the patient. I did further evaluate patient with a KUB x-ray. Patient did have a small amount of blood in his urine. I chose to exclude any renal pathology and did not see evidence of stones at this time. I had offered more advanced testing however patient was unhappy with prolonged wait times in the emergency department due to high volume and had been requesting to go home. He reports that he feels improved declined nausea medications and wishes to proceed back to his residence. Patient was advised that if he develops any new or worsening symptoms he should return back to the emergency department. He is also advised to continue his home quarantine. Understands this course of management and is agreeable to care plan. - Laboratory Result Diagrams: 05/17/20 11:46 05/17/20 11:46 Laboratory results interpreted by me: 05/17/20 05/17/20 05/17/20 11:46 11:46 11:46 WBC 10.8 H Hgb 13.1 L RDW 16.0 H Plt Count 463 H Carbon Dioxide 32 H BUN 31 H Creatinine 1.33 H Est GFR (MDRD) Non-Af 53 L Glucose 114 H ALT 213 H Alkaline Phosphatase 128 H Albumin 3.3 L Urine Protein 100 H Urine Blood MODERATE H - Diagnostic Test Radiology reviewed: Image reviewed Radiology results interpreted by me: 05/17/20 18:20 KUB unremarkable. Discharge - Discharge Clinical Impression: COVID-19 Nausea & vomiting Qualifiers: Vomiting type: unspecified Vomiting Intractability: unspecified Qualified Code(s): R11.2 - Nausea with vomiting, unspecified Condition: Stable Disposition: HOME, SELF-CARE Prescriptions: Ondansetron [Zofran Odt 4 mg Tablet] 1 - 2 tab PO Q4H PRN #15 tab.rapdis PRN Reason: For Nausea/Vomiting Referrals: MANDEEP OJEDA MD [Primary Care Provider] - Follow up as needed
[2020-05-17 15:29] VITALS: BP 149/71
== END 2020-05-17 15:25 | disposition home or self-care (01) ==
LOC: ER 10:06
DX: U07.1 COVID-19 (principal); R11.2 Nausea with vomiting, unspecified; E11.9 Type 2 diabetes mellitus without complications
CPT/HCPCS: 36415; 74018; 80053; 81001; 85025; 99284